=== PATIENT | female | born 1940 | race Caucasian/White ===

== ENCOUNTER 2020-05-12 20:52 | Inpatient (IN) | payer MEDICARE ==
[~2020-05-12] VITALS: Ht 165.1 cm; Wt 133.8 kg
--- NOTE | 2020-05-12 21:23 | PHYS DOC ---
Past Medical History Past Medical History: Other (Mechanical heart valve) Past Surgical History: Tubal ligation General Adult EDM: Chief Complaint: ABDOMINAL PAIN HPI: HPI: Patient is a 80-year-old female presenting for epigastric pain. Onset was first noticed this morning shortly after eating breakfast which consisted of a pastry and brownie. Nothing known makes better, p.o. intake makes worse. Patient describes pain as sharp epigastric pain that radiates to rest of her abdomen. Timing of symptoms has been constant since onset and worsening. She has never experienced pain like this before. No fever, sick contacts, recent travel, COVID-19 contact, fever, chest pain, shortness of breath, dysuria. Last bowel movement was yesterday, states she has had increased constipation and decreased passing of gas in the preceding 24 hours per baseline. She admits prior abdominal surgeries, admits open tubal ligation, no known history of small bowel obstruction or problems with abdominal adhesions. Review of Systems: Review of Systems: Fourteen body systems of review of systems have been reviewed. See HPI for pertinent positives and negative responses, other singh all other systems are negative, non-pertinent or non-contributory Heart Score: C/O Chest Pain: No HEART Score for Chest Pain: HEART Score for Chest Pain Response (Comments) Value History Slighlty/Non-Suspicious 0 ECG Normal 0 Age > 65 2 Risk Factors >3 Risk Factors or Hx CAD 2 Troponin < Normal Limit 0 Total 4 Risk Factors: Risk Factors: DM, Current or recent (<one month) smoker, HTN, HLP, family history of CAD, obesity. Risk Scores: Score 0 - 3: 2.5% MACE over next 6 weeks - Discharge Home Score 4 - 6: 20.3% MACE over next 6 weeks - Admit for Clinical Observation Score 7 - 10: 72.7% MACE over next 6 weeks - Early Invasive Strategies Physical Exam: PE: Constitutional: Well developed, well nourished, no acute distress, non-toxic appearance. HENT: Normocephalic, atraumatic, bilateral external ears normal, oropharynx moist, no oral exudates, nose normal. Eyes: PERRLA, EOMI, conjunctiva normal, no discharge. Neck: Normal range of motion, no tenderness, supple, no stridor. Cardiovascular: Heart rate regular, sinus rhythm, strong S2 Lungs & Thorax: Diminished breath sounds bilaterally due to body habitus without respiratory distress, increased work of breathing or concerning findings on auscultation Abdomen: Bowel sounds hypoactive but present in all quadrants, soft and pro tuberant, generalized tenderness with palpation most focal in epigastric region, guarding present without rebound no masses, no pulsatile masses. Nonsurgical abdomen, no peritoneal signs Skin: Warm, dry, no erythema, no rash. Back: No tenderness, no CVA tenderness. Extremities: No tenderness, no cyanosis, no clubbing, ROM intact, no edema. Neurologic: Alert and oriented X 3, grossly normal motor & sensory function, no focal deficits noted. Psychologic: Affect normal, judgement normal, mood normal. Current Patient Data: Labs: Laboratory Tests Test 05/12/20 21:45 White Blood Count 9.6 x10^3/uL Red Blood Count 4.61 x10^6/uL Hemoglobin 11.9 g/dL Hematocrit 36.4 % Mean Corpuscular Volume 79 fL Mean Corpuscular Hemoglobin 26 pg Mean Corpuscular Hemoglobin Concent 33 g/dL Red Cell Distribution Width 17.4 % Platelet Count 390 x10^3/uL Neutrophils (%) (Auto) 81 % Lymphocytes (%) (Auto) 13 % Monocytes (%) (Auto) 5 % Eosinophils (%) (Auto) 1 % Basophils (%) (Auto) 1 % Neutrophils # (Auto) 7.8 x10^3/uL Lymphocytes # (Auto) 1.2 x10^3/uL Monocytes # (Auto) 0.5 x10^3/uL Eosinophils # (Auto) 0.1 x10^3/uL Basophils # (Auto) 0.1 x10^3/uL Prothrombin Time 21.5 SEC Prothromb Time International Ratio 1.9 Activated Partial Thromboplast Time 27 SEC Sodium Level 139 mmol/L Potassium Level 4.0 mmol/L Chloride Level 99 mmol/L Carbon Dioxide Level 32 mmol/L Anion Gap 8 Blood Urea Nitrogen 15 mg/dL Creatinine 1.1 mg/dL Estimated GFR (Cockcroft-Gault) 48.0 BUN/Creatinine Ratio 14 Glucose Level 216 mg/dL Calcium Level 8.0 mg/dL Total Bilirubin 0.6 mg/dL Aspartate Amino Transf (AST/SGOT) 28 U/L Alanine Aminotransferase (ALT/SGPT) 28 U/L Alkaline Phosphatase 115 U/L Troponin I Quantitative < 0.017 ng/mL Total Protein 6.9 g/dL Albumin 3.1 g/dL Albumin/Globulin Ratio 0.8 Lipase 77 U/L Current Medications Medications (Trade) Dose Ordered Sig/David Route PRN Reason Start Time Stop Time Status Last Admin Dose Admin Morphine Sulfate (Morphine Sulfate) 4 mg 1X ONCE IV 05/12/20 22:30 05/12/20 22:31 DC 05/12/20 22:03 Ondansetron HCl (Zofran) 4 mg 1X ONCE IVP 05/12/20 22:30 05/12/20 22:31 DC 05/12/20 22:02 Iohexol (Omnipaque 300 Mg/ml) 60 ml 1X ONCE IV 05/12/20 23:00 05/12/20 23:01 DC 05/12/20 22:54 Info (CONTRAST GIVEN -- Rx MONITORING) 1 each PRN DAILY PRN MC SEE COMMENTS 05/12/20 22:30 05/14/20 22:29 Vital Signs: Vital Signs Date Time Temp Pulse Resp B/P (MAP) Pulse Ox O2 Delivery O2 Flow Rate FiO2 05/13/20 02:53 18 Room Air 05/13/20 00:30 98.4 79 18 142/51 (81) 97 Room Air 98.4 05/12/20 22:03 23 95 Room Air 05/12/20 21:55 97.9 72 18 143/58 (86) 93 Room Air 97.9 05/12/20 21:24 97.9 72 22 173/89 (117) 95 Room Air 97.9 EKG: EKG: EKG ordered and interpreted by myself at 2137 hrs. as sinus rhythm at 70 bpm, unremarkable intervals, no axis deviation, no acute ischemic findings, no STEMI Radiology/Procedures: Radiology/Procedures: EXAM: CHEST ONE VIEW. HISTORY: Chest/epigastric pain. COMPARISON: None. FINDINGS: A frontal view of the chest is obtained. There are no confluent infiltrates. There is no pneumothorax or pleural effusion. The heart is mildly enlarged. IMPRESSION: 1. Mild cardiomegaly. Electronically signed by: Ria Avila MD (05/12/2020 10:38 PM) [facility] ///////////////////////// CT ABDOMEN+PELVIS W Clinical Indication: Reason: epigastric pain, nausea and vomiting./ Comparison: None. Technique: Helical CT imaging of the abdomen and pelvis is performed after 60 cc of Omnipaque 300 IV contrast. Oral contrast not administered. Findings: Lung bases are clear. Cardiac size normal. The liver, gallbladder, spleen, pancreas, and adrenal glands are normal. Moderate atherosclerotic calcification of the abdominal aorta and iliac arteries, no aneurysm. 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 Kidneys enhance symmetrically, no hydronephrosis. There is haziness of the central mesentery, nonspecific. The stomach is unremarkable. There are several mildly dilated fluid-filled small bowel loops. The small bowel just proximal to the dilated loops is is mildly thick-walled, for example image 30 and 31. No obvious abnormality is seen at the distal point of transition, coronal image 20. The distal small bowel is decompressed. The appendix is not seen, no secondary signs of appendicitis. There is sigmoid colon diverticulosis. There is minimal free fluid in the upper pelvis. The urinary bladder is normal. Hysterectomy. There is old compression fracture treated with vertebroplasty of T12. There is grade 1 anterolisthesis of L4 on L5. IMPRESSION: 1. Several loops of mid small bowel are dilated and fluid-filled. There is mild wall thickening of small bowel proximal to the dilated loops. There is no obvious abnormality at the distal point of transition. Findings suggest enteritis and partial or developing small bowel obstruction. 2. Sigmoid colon diverticulosis. Electronically signed by: Pankaj Nair MD (05/12/2020 11:17 PM) [facility] Course & Med Decision Making: Course & Med Decision Making Hypertensive otherwise hemodynamically stable patient with history concerning for epigastric pain of suspect GI cause. Physical examination nonconcerning for any acute abdomen, no peritoneal signs Comprehensive work-up performed and concerning for enteritis versus early/partial small bowel obstruction. Given history of decreased bowel movements and flatulence, I am fearful of the latter Patient symptoms did not fully resolve with ER intervention that include IV pain medication and antiemetic use. Various plans of care discussed that included discharge with close outpatient follow-up to hospital admission. Risks and benefits of all plans of care discussed. Patient does not think she can be seen within upcoming 72 hours in outpatient setting for repeat evaluation. She is high risk and has numerous comorbidities. Joint decision to admit for continued IV fluid rehydration, pain control and serial abdominal exams Hospitalist contacted and case discussed, they agreed need for admission for continued intervention as necessary. Patient and were updated and remained amenable to hospital admission. All questions and concerns addressed prior to admission to general medical floor Critical Care Time This patient required critical care. Due to the fact that the patient required a significant amount of one on one physician - patient contact time, ordering and review of studies, arranging urgent treatment with development of a management plan, evaluation of patients response to treatment with frequent reassessments, and discussions with other providers this patient required 40 minutes of critical care time. Critical care time was indicated due to the inherent instability and/or potential for instability in this patient. The critical care time that is allocated to this patient is above and beyond any time spent on any other billable procedures performed on this patient. Mariluz Disclaimer: Mariluz Disclaimer: This electronic medical record was generated, in whole or in part, using a voice recognition dictation system. Departure Departure Impression: Primary Impression: Partial small bowel obstruction Additional Impressions: Intractable abdominal pain Subtherapeutic anticoagulation Disposition: ADMITTED INPT THIS HOSP Admitting Physician: JACOB Condition: STABLE JEFF CALLEJAS May 12, 2020 21:23
--- NOTE | 2020-05-12 21:58 | EKG ---
[facility] [address] [place] [address] Test Date: 2020-05-12 Test Time: 21:33:18 Pat Name: MAYNOR SCHMIDT Department: Room: Gender: F Rn Allergy: : 1940 Requested By: JEFF CALLEJAS Order Number: [id number] Reading MD: Measurements Intervals [place] Rate: 70 P: -41 NM: 178 QRS: 38 QRSD: 86 T: 52 QT: 418 QTc: 454 Interpretive Statements SINUS RHYTHM QRS(T) CONTOUR ABNORMALITY CONSISTENT WITH ANTEROSEPTAL INFARCT AGE UNDETERMINED ABNORMAL ECG RI6.02 No previous ECG available for comparison
[2020-05-12 21:59] LABS: BASO # 0.1 x10^3/uL (0.0-0.2); BASO % 1 % (0-3); EOS # 0.1 x10^3/uL (0.0-0.7); EOS % 1 % (0-3); HEMATOCRIT 36.4 % (36.0-47.0); HEMOGLOBIN 11.9 g/dL (12.0-15.5); LYMPH # 1.2 x10^3/uL (1.0-4.8); LYMPH % 13 % (24-48); MEAN CORPUSCULAR HEMOGLOBIN 26 pg (25-35); MEAN CORPUSCULAR HGB CONC 33 g/dL (31-37); MEAN CORPUSCULAR VOLUME 79 fL (79-100); MONO # 0.5 x10^3/uL (0.0-1.1); MONO % 5 % (0-9); NEUT # 7.8 x10^3/uL (1.8-7.7); NEUT % 81 % (31-73); PLATELET COUNT 390 x10^3/uL (140-400); RED BLOOD COUNT 4.61 x10^6/uL (3.50-5.40); RED CELL DISTRIBUTION WIDTH 17.4 % (11.5-14.5); WHITE BLOOD COUNT 9.6 x10^3/uL (4.0-11.0)
[2020-05-12 22:10] LABS: CREATININE 1.1 mg/dL (0.6-1.0); PROTHROMBIN TIME PATIENT 21.5 SEC (11.7-14.0)
[2020-05-12 22:17] LABS: ALBUMIN 3.1 g/dL (3.4-5.0); ALBUMIN/GLOBULIN RATIO 0.8 (1.0-1.7); TOTAL BILIRUBIN 0.6 mg/dL (0.2-1.0); TOTAL PROTEIN 6.9 g/dL (6.4-8.2)
[2020-05-12] MEDS ORDERED: ONDANSETRON PF 4 MG/2 ML VIAL. IVP ONE (22:30)
[2020-05-12] MEDS ORDERED: CONTRAST GIVEN. MC PRN (22:30)
[2020-05-12] MEDS ORDERED: MORPHINE SULFATE 4 MG/ML VIAL. IV ONE (22:30)
--- NOTE | 2020-05-12 22:40 | RAD ---
EXAM: CHEST ONE VIEW. HISTORY: Chest/epigastric pain. COMPARISON: None. FINDINGS: A frontal view of the chest is obtained. There are no confluent infiltrates. There is no pneumothorax or pleural effusion. The heart is mildly enlarged. IMPRESSION: 1. Mild cardiomegaly. Electronically signed by: Ria Avila MD (05/12/2020 10:38 PM) [facility]
[2020-05-12] MEDS ORDERED: IOHEXOL 300 MG/ML 100ML VIAL. IV ONE (23:00)
--- NOTE | 2020-05-12 23:19 | RAD ---
PQRS Compliance Statement: One or more of the following individualized dose reduction techniques were utilized for this examinat ion: 1. Automated exposure control 2. Adjustment of the mA and/or kV according to patient size 3. Use of iterative reconstruction technique CT ABDOMEN+PELVIS W Clinical Indication: Reason: epigastric pain, nausea and vomiting./ Comparison: None. Technique: Helical CT imaging of the abdomen and pelvis is performed after 60 cc of Omnipaque 300 IV contrast. Oral contrast not administered. Findings: Lung bases are clear. Cardiac size normal. The liver, gallbladder, spleen, pancreas, and adrenal glands are normal. Moderate atherosclerotic rob cification of the abdominal aorta and iliac arteries, no aneurysm. There is a left-sided infrarenal I VC. Kidneys enhance symmetrically, no hydronephrosis. There is haziness of the central mesentery, non specific. The stomach is unremarkable. There are several mildly dilated fluid-filled small bowel loops. The sma ll bowel just proximal to the dilated loops is is mildly thick-walled, for example image 30 and 31. N o obvious abnormality is seen at the distal point of transition, coronal image 20. The distal small b owel is decompressed. The appendix is not seen, no secondary signs of appendicitis. There is sigmoid colon diverticulosis. There is minimal free fluid in the upper pelvis. The urinary bladder is normal. Hysterectomy. There is old compression fracture treated with vertebroplasty of T12. There is grade 1 anterolisthesi s of L4 on L5. IMPRESSION: 1. Several loops of mid small bowel are dilated and fluid-filled. There is mild wall thickening of s mall bowel proximal to the dilated loops. There is no obvious abnormality at the distal point of acosta sition. Findings suggest enteritis and partial or developing small bowel obstruction. 2. Sigmoid colon diverticulosis. Electronically signed by: Pankaj Nair MD (05/12/2020 11:17 PM) [facility]
[2020-05-12] MEDS ORDERED: MORPHINE SULFATE 2 MG/ML VIAL. IV PRN (23:45)
[2020-05-13] VITALS (7 sets, daily range): BP systolic 123–150; BP diastolic 49–83
[2020-05-13] MEDS ORDERED: IV NORMAL SALINE 1000ML BAG 1,000 ML IV SCH
[2020-05-13] MEDS ORDERED: DEXTROSE 50% 25 GM / 50ML DISP.SYRIN. IV PRN (09:00)
[2020-05-13] MEDS: POTASSIUM CL 20MEQ D5-0.45NACL 1,000 ML IV SCH ×3 (09:00→23:20)
--- NOTE | 2020-05-13 09:50 | NUR ---
SW following. Discussed with RN, pt from home, room air, clear liquid diet - advance as tolerated. Per RN, pt gets around fine. RN advised no SW needs at this time. SW will continue to follow.
--- NOTE | 2020-05-13 11:10 | PDOC2 ---
GI CONSULT Date of Service: DATE: 05/13/20 TIME: 11:07 Reason For Consult: partial SBO HPI: HPI: 80 y/o female admitted through ER. Bad acid reflux x 2 weeks w/ belching, then yesterday morning after eating breakfast developed epigastric pain w/ nausea. No similar pain in the past. Last stooled ("large" and formed) on Monday. Passing gas today, taking sips of water. No sick contacts. H/o GERD - tells me she takes meclizine? and Tums. Occasional dysphagia felt in upper throat w/ solids and liquids. Occasional constipation - not concerning currently. No vomiting, diarrhea, hematochezia, melena, or weight loss. Good appetite til this illness. Not sure about previous EGD. Does report normal colonoscopy in the past (?done here - unclear when). No GB, liver, pancreas, or PUD history. Takes [place] QID PRN (mostly just BID) for arthritis pain. H/o AVR on Warfarin. PMH: PMH: CVA, CT, HTN, HLD, arthritis, UTI, depression, anxiety, DM (chart lists PE - she denies) AVR, tubal ligation, total hysterectomy, cataract removal, vertebroplasty FH: Family History: Cancer (mother - cervical) Social History: Smoke: No ALCOHOL: none Drugs: None ROS: GEN: Denies fevers, chills, sweats HEENT: Denies blurred vision, sore throat CV: Denies chest pain RESP: Denies shortness of air, cough GI: Per HPI : Denies hematuria, dysuria ENDO: Denies weight changes NEURO: Denies confusion, dizziness MSK: Denies weakness, joint pain/swelling SKIN: Denies jaundice, pruritus Vitals: Vitals: Vital Signs Date Time Temp Pulse Resp B/P (MAP) Pulse Ox O2 Delivery O2 Flow Rate FiO2 05/13/20 11:00 97.9 73 16 /52 97 Room Air 97.9 05/13/20 01:30 91.0 Labs: Labs: Laboratory Tests Test 05/12/20 21:45 White Blood Count 9.6 x10^3/uL (4.0-11.0) Red Blood Count 4.61 x10^6/uL (3.50-5.40) Hemoglobin 11.9 g/dL (12.0-15.5) Hematocrit 36.4 % (36.0-47.0) Mean Corpuscular Volume 79 fL (79-100) Mean Corpuscular Hemoglobin 26 pg (25-35) Mean Corpuscular Hemoglobin Concent 33 g/dL (31-37) Red Cell Distribution Width 17.4 % (11.5-14.5) Platelet Count 390 x10^3/uL (140-400) Neutrophils (%) (Auto) 81 % (31-73) Lymphocytes (%) (Auto) 13 % (24-48) Monocytes (%) (Auto) 5 % (0-9) Eosinophils (%) (Auto) 1 % (0-3) Basophils (%) (Auto) 1 % (0-3) Neutrophils # (Auto) 7.8 x10^3/uL (1.8-7.7) Lymphocytes # (Auto) 1.2 x10^3/uL (1.0-4.8) Monocytes # (Auto) 0.5 x10^3/uL (0.0-1.1) Eosinophils # (Auto) 0.1 x10^3/uL (0.0-0.7) Basophils # (Auto) 0.1 x10^3/uL (0.0-0.2) Prothrombin Time 21.5 SEC (11.7-14.0) Prothromb Time International Ratio 1.9 (0.8-1.1) Activated Partial Thromboplast Time 27 SEC (24-38) Sodium Level 139 mmol/L (136-145) Potassium Level 4.0 mmol/L (3.5-5.1) Chloride Level 99 mmol/L (98-107) Carbon Dioxide Level 32 mmol/L (21-32) Anion Gap 8 (6-14) Blood Urea Nitrogen 15 mg/dL (7-20) Creatinine 1.1 mg/dL (0.6-1.0) Estimated GFR (Cockcroft-Gault) 48.0 BUN/Creatinine Ratio 14 (6-20) Glucose Level 216 mg/dL (70-99) Calcium Level 8.0 mg/dL (8.5-10.1) Total Bilirubin 0.6 mg/dL (0.2-1.0) Aspartate Amino Transf (AST/SGOT) 28 U/L (15-37) Alanine Aminotransferase (ALT/SGPT) 28 U/L (14-59) Alkaline Phosphatase 115 U/L (46-116) Troponin I Quantitative < 0.017 ng/mL (0.000-0.055) Total Protein 6.9 g/dL (6.4-8.2) Albumin 3.1 g/dL (3.4-5.0) Albumin/Globulin Ratio 0.8 (1.0-1.7) Lipase 77 U/L (73-393) Allergies: Coded Allergies: erythromycin base (Verified Allergy, Severe, Rash, 05/12/20) lisinopril (Verified Allergy, Severe, Anaphylaxis, 05/12/20) Medications: Current Medications Medications (Trade) Dose Ordered Sig/David Route PRN Reason Start Time Stop Time Status Last Admin Dose Admin Morphine Sulfate (Morphine Sulfate) 4 mg 1X ONCE IV 05/12/20 22:30 05/12/20 22:31 DC 05/12/20 22:03 Ondansetron HCl (Zofran) 4 mg 1X ONCE IVP 05/12/20 22:30 05/12/20 22:31 DC 05/12/20 22:02 Iohexol (Omnipaque 300 Mg/ml) 60 ml 1X ONCE IV 05/12/20 23:00 05/12/20 23:01 DC 05/12/20 22:54 Morphine Sulfate (Morphine Sulfate) 2 mg PRN Q2HR PRN IV SEVERE PAIN 7-10 05/12/20 23:45 05/13/20 23:44 05/13/20 02:53 Sodium Chloride 1,000 ml @ 150 mls/hr Q6H40M IV 05/13/20 00:00 05/13/20 00:01 DC 05/13/20 02:49 Potassium Chloride/Dextrose/ Sod Cl 1,000 ml @ 100 mls/hr Q10H IV 05/13/20 09:00 05/13/20 09:00 Imaging: Imaging: CT A/P IMPRESSION: 1. Several loops of mid small bowel are dilated and fluid-filled. There is mild wall thickening of small bowel proximal to the dilated loops. There is no obvious abnormality at the distal point of transition. Findings suggest ent eritis and partial or developing small bowel obstruction. 2. Sigmoid colon diverticulosis. CXR IMPRESSION: 1. Mild cardiomegaly. PE: GEN: NAD HEENT: Atraumatic, PERRL LUNGS: CTAB HEART: RRR ABD: obese, BS+, epigastric tenderness EXTREMITY: trace BLE edema SKIN: No rashes, no jaundice NEURO/PSYCH: A & O 3 A/P: A/P: Epigastric pain, nausea Anemia Abnormal CT - enteritis and partial/developing SBO GERD - history of, symptoms worse x 2 weeks Occasional dysphagia CRC screen - reports normal colonoscopy in past Occasional constipation Chronic pain on [place] S/p AVR on Warfarin -- Previously d/w Propeck - checking interval KUB and will ask for surgery to follow. 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 SEBAS VILLAFUERTE May 13, 2020 11:10
--- NOTE | 2020-05-13 11:44 | PDOC1 ---
History and Physical Date of Admission Date of Admission DATE: 05/13/20 TIME: 11:43 Source Source: Chart review, Patient History of Present Illness History of Present Illness Ms. Grant, is a 80-year-old female admit from ER for severe epigastric pain. sudden pain after eating breakfast yesteday, still having pain, no stool no vomiting, pain 8/10 and intermittent, colicky. I noticed grossly audible gastric sounds while talking to her. Patient describes pain as sharp epigastric pain that radiates to rest of her abdomen. No fever, sick contacts, recent travel, COVID-19 contact, fever, chest pain, shortness of breath, dysuria. Last bowel movement was yesterday, states she has had increased constipation and decreased passing of gas in the preceding 24 hours per baseline. She admits prior abdominal surgeries, admits open tubal ligation, no known history of small bowel obstruction or problems with abdominal adhesion she is oriented 4/4, but cannot recall her home meds, PCP is Dr. Montejo, Past Medical History Cardiovascular: HTN GI: No pertinent hx Heme/Onc: No pertinent hx Renal/: No pertinent hx Family History Family History: Heart Disease Social History Smoke: No ALCOHOL: none Drugs: None Current Problem List Problem List Problems Medical Problems: (1) Intractable abdominal pain Status: Acute (2) Partial small bowel obstruction Status: Acute (3) Subtherapeutic anticoagulation Status: Acute Current Medications Current Medications Current Medications Morphine Sulfate (Morphine Sulfate) 4 mg 1X ONCE IV Last administered on 05/12/20at 22:03; Start 05/12/20 at 22:30; Stop 05/12/20 at 22:31; Status DC Ondansetron HCl (Zofran) 4 mg 1X ONCE IVP Last administered on 05/12/20at 22:02; Start 05/12/20 at 22:30; Stop 05/12/20 at 22:31; Status DC Iohexol (Omnipaque 300 Mg/ml) 60 ml 1X ONCE IV Last administered on 05/12/20at 22:54; Start 05/12/20 at 23:00; Stop 05/12/20 at 23:01; Status DC Info (CONTRAST GIVEN -- Rx MONITORING) 1 each PRN DAILY PRN MC SEE COMMENTS; Start 05/12/20 at 22:30; Stop 05/14/20 at 22:29 Morphine Sulfate (Morphine Sulfate) 2 mg PRN Q2HR PRN IV SEVERE PAIN 7-10 Last administered on 05/13/20at 02:53; Start 05/12/20 at 23:45; Stop 05/13/20 at 23:44 Sodium Chloride 1,000 ml @ 150 mls/hr Q6H40M IV Last administered on 05/13/20at 02:49; Start 05/13/20 at 00:00; Stop 05/13/20 at 00:01; Status DC Potassium Chloride/Dextrose/ Sod Cl 1,000 ml @ 100 mls/hr Q10H IV Last administered on 05/13/20at 09:00; Start 05/13/20 at 09:00 Insulin Human Lispro (HumaLOG) 0-9 UNITS TIDWMEALS SQ ; Start 05/13/20 at 12:00 Dextrose (Dextrose 50%-Water Syringe) 12.5 gm PRN Q15MIN PRN IV SEE COMMENTS; Start 05/13/20 at 09:00 Pantoprazole Sodium (PROTONIX VIAL for IV PUSH) 40 mg DAILYAC IVP ; Start 05/13/20 at 11:45; Status UNV Allergies Allergies: Coded Allergies: erythromycin base (Verified Allergy, Severe, Rash, 05/12/20) lisinopril (Verified Allergy, Severe, Anaphylaxis, 05/12/20) ROS General: YES: Fatigue; No: Chills, Night Sweats, Malaise, Appetite, Other PSYCHOLOGICAL ROS: No: Anxiety, Behavioral Disorder, Concentration difficultie, Decreased libido, Depression, Disorientation, Hallucinations, Hostility, Irritablity, Memory difficulties, Mood Swings, Obsessive thoughts, Physical abuse, Sexual abuse, Sleep disturbances, Suicidal ideation, Other Eyes: No Blurry vision, No Decreased vision, No Double vision, No Dry eyes, No Excessive tearing, No Eye Pain, No Itchy Eyes, No Loss of vision, No Photophobia, No Scotomata, No Uses contacts, No Uses glasses, No Other Cardiovascular: No Chest Pain, No Palpitations, No Orthopnea, No Paroxysmal No c. Dyspnea, No Edema, No Lt Headedness, No Other Gastrointestinal: Yes Nausea, Yes Abdominal Pain; No Vomiting, No Diarrhea, No Constipation, No Melena, No Hematochezia, No Other Genitourinary: No Dysuria, No Frequency, No Incontinence, No Hematuria, No Retention, No Discharge, No Urgency, No Pain, No Flank Pain, No Other, No , No , No , No , No , No , No Musculoskeletal: No Gait Disturbance, No Joint Pain, No Joint Stiffness, No Joint Swelling, No Muscle Pain, No Muscular Weakness, No Pain In:, No Swelling In:, No Other Neurological: No Behavorial Changes, No Bowel/Bladder ControlChng, No Confusion, No Dizziness, No Gait Disturbance, No Headaches, No Impaired Coord/balance, No Memory Loss, No Numbness/Tingling, No Seizures, No Speech Problems, No Tremors, No Visual Changes, No Weakness, No Other Skin: Yes Dry Skin; No Eczema, No Hair Changes, No Lumps, No Mole Changes, No Mottling, No Nail Changes, No Pruritus, No Rash, No Skin Lesion Changes, No Other, No Acne Physical Exam General: Alert, Oriented X3, Cooperative, moderate distress HEENT: Atraumatic, PERRLA Lungs: Clear to auscultation Heart: S1S2, RRR, no thrills Extremities: No clubbing, No edema, Normal pulses Skin: No rashes, No significant lesion Neuro: Normal speech, Normal tone, Sensation intact Psych/Mental Status: Mental status NL, Mood NL Vitals Vitals Vital Signs Date Time Temp Pulse Resp B/P (MAP) Pulse Ox O2 Delivery O2 Flow Rate FiO2 05/13/20 11:00 97.9 73 16 124/52 (76) 97 Room Air 97.9 05/13/20 01:30 91.0 Labs Labs Laboratory Tests Test 05/12/20 21:45 White Blood Count 9.6 x10^3/uL (4.0-11.0) Red Blood Count 4.61 x10^6/uL (3.50-5.40) Hemoglobin 11.9 g/dL (12.0-15.5) Hematocrit 36.4 % (36.0-47.0) Mean Corpuscular Volume 79 fL (79-100) Mean Corpuscular Hemoglobin 26 pg (25-35) Mean Corpuscular Hemoglobin Concent 33 g/dL (31-37) Red Cell Distribution Width 17.4 % (11.5-14.5) Platelet Count 390 x10^3/uL (140-400) Neutrophils (%) (Auto) 81 % (31-73) Lymphocytes (%) (Auto) 13 % (24-48) Monocytes (%) (Auto) 5 % (0-9) Eosinophils (%) (Auto) 1 % (0-3) Basophils (%) (Auto) 1 % (0-3) Neutrophils # (Auto) 7.8 x10^3/uL (1.8-7.7) Lymphocytes # (Auto) 1.2 x10^3/uL (1.0-4.8) Monocytes # (Auto) 0.5 x10^3/uL (0.0-1.1) Eosinophils # (Auto) 0.1 x10^3/uL (0.0-0.7) Basophils # (Auto) 0.1 x10^3/uL (0.0-0.2) Prothrombin Time 21.5 SEC (11.7-14.0) Prothromb Time International Ratio 1.9 (0.8-1.1) Activated Partial Thromboplast Time 27 SEC (24-38) Sodium Level 139 mmol/L (136-145) Potassium Level 4.0 mmol/L (3.5-5.1) Chloride Level 99 mmol/L (98-107) Carbon Dioxide Level 32 mmol/L (21-32) Anion Gap 8 (6-14) Blood Urea Nitrogen 15 mg/dL (7-20) Creatinine 1.1 mg/dL (0.6-1.0) Estimated GFR (Cockcroft-Gault) 48.0 BUN/Creatinine Ratio 14 (6-20) Glucose Level 216 mg/dL (70-99) Calcium Level 8.0 mg/dL (8.5-10.1) Total Bilirubin 0.6 mg/dL (0.2-1.0) Aspartate Amino Transf (AST/SGOT) 28 U/L (15-37) Alanine Aminotransferase (ALT/SGPT) 28 U/L (14-59) Alkaline Phosphatase 115 U/L (46-116) Troponin I Quantitative < 0.017 ng/mL (0.000-0.055) Total Protein 6.9 g/dL (6.4-8.2) Albumin 3.1 g/dL (3.4-5.0) Albumin/Globulin Ratio 0.8 (1.0-1.7) Lipase 77 U/L (73-393) Laboratory Tests Test 05/12/20 21:45 White Blood Count 9.6 x10^3/uL (4.0-11.0) Red Blood Count 4.61 x10^6/uL (3.50-5.40) Hemoglobin 11.9 g/dL (12.0-15.5) Hematocrit 36.4 % (36.0-47.0) Mean Corpuscular Volume 79 fL (79-100) Mean Corpuscular Hemoglobin 26 pg (25-35) Mean Corpuscular Hemoglobin Concent 33 g/dL (31-37) Red Cell Distribution Width 17.4 % (11.5-14.5) Platelet Count 390 x10^3/uL (140-400) Neutrophils (%) (Auto) 81 % (31-73) Lymphocytes (%) (Auto) 13 % (24-48) Monocytes (%) (Auto) 5 % (0-9) Eosinophils (%) (Auto) 1 % (0-3) Basophils (%) (Auto) 1 % (0-3) Neutrophils # (Auto) 7.8 x10^3/uL (1.8-7.7) Lymphocytes # (Auto) 1.2 x10^3/uL (1.0-4.8) Monocytes # (Auto) 0.5 x10^3/uL (0.0-1.1) Eosinophils # (Auto) 0.1 x10^3/uL (0.0-0.7) Basophils # (Auto) 0.1 x10^3/uL (0.0-0.2) Prothrombin Time 21.5 SEC (11.7-14.0) Prothromb Time International Ratio 1.9 (0.8-1.1) Activated Partial Thromboplast Time 27 SEC (24-38) Sodium Level 139 mmol/L (136-145) Potassium Level 4.0 mmol/L (3.5-5.1) Chloride Level 99 mmol/L (98-107) Carbon Dioxide Level 32 mmol/L (21-32) Anion Gap 8 (6-14) Blood Urea Nitrogen 15 mg/dL (7-20) Creatinine 1.1 mg/dL (0.6-1.0) Estimated GFR (Cockcroft-Gault) 48.0 BUN/Creatinine Ratio 14 (6-20) Glucose Level 216 mg/dL (70-99) Calcium Level 8.0 mg/dL (8.5-10.1) Total Bilirubin 0.6 mg/dL (0.2-1.0) Aspartate Amino Transf (AST/SGOT) 28 U/L (15-37) Alanine Aminotransferase (ALT/SGPT) 28 U/L (14-59) Alkaline Phosphatase 115 U/L (46-116) Troponin I Quantitative < 0.017 ng/mL (0.000-0.055) Total Protein 6.9 g/dL (6.4-8.2) Albumin 3.1 g/dL (3.4-5.0) Albumin/Globulin Ratio 0.8 (1.0-1.7) Lipase 77 U/L (73-393) VTE Prophylaxis Ordered VTE Prophylaxis Devices: Yes VTE Pharmacological Prophylaxi: No Assessment/Plan Assessment/Plan acute abdominal pain nausea partial SBO plan IV fluid, bowel rest, consult GI obese, BMI 49 dental caries Justifications for Admission Other Justification LUPILLO CEE MD May 13, 2020 11:44
[2020-05-13] MEDS: INSULIN LISPRO 300 UNITS/3 ML VIAL. SQ SCH ×2 (12:00→17:00)
[2020-05-13] MEDS: PANTOPRAZOLE IV PUSH 40 MG VIAL. IVP SCH (12:01)
[2020-05-13] MEDS ORDERED: AMLO-186 PO (14:33)
[2020-05-13] MEDS ORDERED: DOCU100C28 PO (14:33)
[2020-05-13] MEDS ORDERED: CITA20TA6 PO (14:33)
[2020-05-13] MEDS ORDERED: ATOR40TA59 PO (14:33)
[2020-05-13] MEDS ORDERED: HYDR-2761 PO (14:33)
[2020-05-13] MEDS ORDERED: ASPI-630 PO (14:33)
[2020-05-13] MEDS ORDERED: HYDR25TA10 PO (14:33)
[2020-05-13] MEDS ORDERED: PANT40TA77 PO (14:33)
[2020-05-13] MEDS ORDERED: LOSA25TA54 PO (14:33)
[2020-05-13] MEDS ORDERED: WARF7.5T45 PO (14:33)
[2020-05-13] MEDS ORDERED: METO25TA4 PO (14:33)
--- NOTE | 2020-05-13 15:12 | RAD ---
Single view abdomen. INDICATION: Abdominal pain COMPARISON: Abdomen and pelvis CT of 05/12/2020 without IV contrast FINDINGS: Multiple gas-filled small bowel bowel loops are present. This is similar to prior. No free air. No pn eumatosis. No evidence of portal venous gas. Bones show vertebroplasty cement at T12 which has hypopl astic ribs. Sternal cerclage wires incidentally noted. Visualized lung bases are unremarkable. The lo wer abdomen shows contrast material in the urinary bladder. IMPRESSION: Persistent gaseous distention of small bowel loops in a pattern compatible with small bowel obstructi on. Electronically signed by: Chelsie Chowdary MD (05/13/2020 3:10 PM) [id number]
[2020-05-13] MEDS ORDERED: WARFARIN 7.5 MG TABLET. PO ONE (16:00)
--- NOTE | 2020-05-13 16:26 | PDOC2 ---
CONSULT Date of Consult Date of Consult DATE: 05/13/20 TIME: 16:21 Reason for Consult Reason for Consult: SBO, enteritis Referring Physician Referring Physician: Dr. Rae Identification/Chief Complaint Chief Complaint abd pain Source Source: Chart review, Patient History of Present Illness Reason for Visit: 80 yo F with c/o reflux and nausea with epigastric abd pain, no emesis. No previous episodes. Some improvement since admission, passing some flatus Past Medical History Cardiovascular: CAD, HTN CENTRAL NERVOUS SYSTEM: CVA GI: No pertinent hx Heme/Onc: No pertinent hx Psych: Anxiety, Depression Renal/: No pertinent hx Past Surgical History Past Surgical History: Hysterectomy (, back surgery, valve replacement) Family History Family History: No Significant, Heart Disease Social History No ALCOHOL: none Drugs: None Current Problem List Problem List Problems Medical Problems: (1) Intractable abdominal pain Status: Acute (2) Partial small bowel obstruction Status: Acute (3) Subtherapeutic anticoagulation Status: Acute Current Medications Current Medications Current Medications Morphine Sulfate (Morphine Sulfate) 4 mg 1X ONCE IV Last administered on 04/15 at 22:03; Start 05/12/20 at 22:30; Stop 05/12/20 at 22:31; Status DC Ondansetron HCl (Zofran) 4 mg 1X ONCE IVP Last administered on 05/12/20at 22:02; Start 05/12/20 at 22:30; Stop 05/12/20 at 22:31; Status DC Iohexol (Omnipaque 300 Mg/ml) 60 ml 1X ONCE IV Last administered on 05/12/20at 22:54; Start 05/12/20 at 23:00; Stop 05/12/20 at 23:01; Status DC Info (CONTRAST GIVEN -- Rx MONITORING) 1 each PRN DAILY PRN MC SEE COMMENTS; Start 05/12/20 at 22:30; Stop 05/14/20 at 22:29 Morphine Sulfate (Morphine Sulfate) 2 mg PRN Q2HR PRN IV SEVERE PAIN 7-10 Last administered on 05/13/20at 02:53; Start 05/12/20 at 23:45; Stop 05/13/20 at 23:44 Sodium Chloride 1,000 ml @ 150 mls/hr Q6H40M IV Last administered on 05/13/20at 02:49; Start 05/13/20 at 00:00; Stop 05/13/20 at 00:01; Status DC Potassium Chloride/Dextrose/ Sod Cl 1,000 ml @ 100 mls/hr Q10H IV Last administered on 05/13/20at 09:00; Start 05/13/20 at 09:00 Insulin Human Lispro (HumaLOG) 0-9 UNITS TIDWMEALS SQ ; Start 05/13/20 at 12:00 Dextrose (Dextrose 50%-Water Syringe) 12.5 gm PRN Q15MIN PRN IV SEE COMMENTS; Start 05/13/20 at 09:00 Pantoprazole Sodium (PROTONIX VIAL for IV PUSH) 40 mg DAILYAC IVP Last administered on 05/13/20at 12:01; Start 05/13/20 at 11:45 Warfarin Sodium (Coumadin Per Pharmacy) 1 each PRN DAILY PRN MC SEE COMMENTS Last administered on 05/13/20at 16:11; Start 05/13/20 at 15:00 Aspirin (Aspirin Chewable) 81 mg DAILY PO ; Start 05/14/20 at 09:00 Atorvastatin Calcium (Lipitor) 40 mg QHS PO ; Start 05/13/20 at 21:00 Citalopram Hydrobromide (CeleXA) 20 mg DAILY PO ; Start 05/14/20 at 09:00 Docusate Sodium (Colace) 100 mg BID PO ; Start 05/13/20 at 21:00 Acetaminophen/ Hydrocodone Bitart (Lortab 5/325) 1 tab PRN Q6HRS PRN PO PAIN; Start 05/13/20 at 15:00 Metoprolol Tartrate (Lopressor) 25 mg BID PO ; Start 05/13/20 at 21:00 Warfarin Sodium (Coumadin) 7.5 mg 1X WARF ONCE PO Last administered on 05/13/20at 16:08; Start 05/13/20 at 16:00; Stop 05/13/20 at 16:03; Status DC Active Scripts Active Reported Hydrocodone-Apap 5-325 (Hydrocodone Bit/Acetaminophen) 1 Tab Tablet 1 Tab PO PRN Q6HRS PRN Warfarin Sodium 7.5 Mg Tablet 7.5 Mg PO DAILY Citalopram Hbr (Citalopram Hydrobromide) 20 Mg Tablet 1 Tab PO DAILY Amlodipine Besylate 5 Mg Tablet 5 Mg PO DAILY Docusate Sodium 100 Mg Capsule 1 Cap PO BID 7 Days Pantoprazole Sodium (Pantoprazole Sodium) 40 Mg Tablet.dr 40 Mg PO DAILYAC Aspirin 81 Mg Tab.chew 1 Tab PO DAILY Losartan Potassium (Losartan Potassium) 25 Mg Tablet 25 Mg PO BID Hydrochlorothiazide 25 Mg Tablet 25 Mg PO DAILY Atorvastatin Calcium 40 Mg Tablet 1 Tab PO QHS Metoprolol Tartrate 25 Mg Tablet 1 Tab PO BID Allergies Allergies: Coded Allergies: erythromycin base (Verified Allergy, Severe, Rash, 05/12/20) lisinopril (Verified Allergy, Severe, Anaphylaxis, 05/12/20) ROS Gastrointestinal: Yes Nausea, Yes Abdominal Pain, Yes Other (reflux) Physical Exam General: Alert, Oriented X3, Cooperative, mild distress HEENT: Atraumatic Lungs: Normal air movement Abdomen: Soft, Other (obese, mild TTP) Extremities: No clubbing, No cyanosis Skin: No rashes, No breakdown Neuro: Normal speech, Sensation intact Psych/Mental Status: Mental status NL, Mood NL Vitals VITALS Vital Signs Date Time Temp Pulse Resp B/P (MAP) Pulse Ox O2 Delivery O2 Flow Rate FiO2 05/13/20 15:00 97.9 71 16 150/83 (105) 89 Room Air 97.9 05/13/20 01:30 91.0 Labs Labs Laboratory Tests Test 05/12/20 21:45 05/13/20 13:25 White Blood Count 9.6 x10^3/uL (4.0-11.0) Red Blood Count 4.61 x10^6/uL (3.50-5.40) Hemoglobin 11.9 g/dL (12.0-15.5) Hematocrit 36.4 % (36.0-47.0) Mean Corpuscular Volume 79 fL (79-100) Mean Corpuscular Hemoglobin 26 pg (25-35) Mean Corpuscular Hemoglobin Concent 33 g/dL (31-37) Red Cell Distribution Width 17.4 % (11.5-14.5) Platelet Count 390 x10^3/uL (140-400) Neutrophils (%) (Auto) 81 % (31-73) Lymphocytes (%) (Auto) 13 % (24-48) Monocytes (%) (Auto) 5 % (0-9) Eosinophils (%) (Auto) 1 % (0-3) Basophils (%) (Auto) 1 % (0-3) Neutrophils # (Auto) 7.8 x10^3/uL (1.8-7.7) Lymphocytes # (Auto) 1.2 x10^3/uL (1.0-4.8) Monocytes # (Auto) 0.5 x10^3/uL (0.0-1.1) Eosinophils # (Auto) 0.1 x10^3/uL (0.0-0.7) Basophils # (Auto) 0.1 x10^3/uL (0.0-0.2) Prothrombin Time 21.5 SEC (11.7-14.0) Prothromb Time International Ratio 1.9 (0.8-1.1) Activated Partial Thromboplast Time 27 SEC (24-38) Sodium Level 139 mmol/L (136-145) Potassium Level 4.0 mmol/L (3.5-5.1) Chloride Level 99 mmol/L (98-107) Carbon Dioxide Level 32 mmol/L (21-32) Anion Gap 8 (6-14) Blood Urea Nitrogen 15 mg/dL (7-20) Creatinine 1.1 mg/dL (0.6-1.0) Estimated GFR (Cockcroft-Gault) 48.0 BUN/Creatinine Ratio 14 (6-20) Glucose Level 216 mg/dL (70-99) Calcium Level 8.0 mg/dL (8.5-10.1) Total Bilirubin 0.6 mg/dL (0.2-1.0) Aspartate Amino Transf (AST/SGOT) 28 U/L (15-37) Alanine Aminotransferase (ALT/SGPT) 28 U/L (14-59) Alkaline Phosphatase 115 U/L (46-116) Troponin I Quantitative < 0.017 ng/mL (0.000-0.055) Total Protein 6.9 g/dL (6.4-8.2) Albumin 3.1 g/dL (3.4-5.0) Albumin/Globulin Ratio 0.8 (1.0-1.7) Lipase 77 U/L (73-393) Glucose (Fingerstick) 173 mg/dL (70-99) Laboratory Tests Test 05/12/20 21:45 05/13/20 13:25 White Blood Count 9.6 x10^3/uL (4.0-11.0) Red Blood Count 4.61 x10^6/uL (3.50-5.40) Hemoglobin 11.9 g/dL (12.0-15.5) Hematocrit 36.4 % (36.0-47.0) Mean Corpuscular Volume 79 fL (79-100) Mean Corpuscular Hemoglobin 26 pg (25-35) Mean Corpuscular Hemoglobin Concent 33 g/dL (31-37) Red Cell Distribution Width 17.4 % (11.5-14.5) Platelet Count 390 x10^3/uL (140-400) Neutrophils (%) (Auto) 81 % (31-73) Lymphocytes (%) (Auto) 13 % (24-48) Monocytes (%) (Auto) 5 % (0-9) Eosinophils (%) (Auto) 1 % (0-3) Basophils (%) (Auto) 1 % (0-3) Neutrophils # (Auto) 7.8 x10^3/uL (1.8-7.7) Lymphocytes # (Auto) 1.2 x10^3/uL (1.0-4.8) Monocytes # (Auto) 0.5 x10^3/uL (0.0-1.1) Eosinophils # (Auto) 0.1 x10^3/uL (0.0-0.7) Basophils # (Auto) 0.1 x10^3/uL (0.0-0.2) Prothrombin Time 21.5 SEC (11.7-14.0) Prothromb Time International Ratio 1.9 (0.8-1.1) Activated Partial Thromboplast Time 27 SEC (24-38) Sodium Level 139 mmol/L (136-145) Potassium Level 4.0 mmol/L (3.5-5.1) Chloride Level 99 mmol/L (98-107) Carbon Dioxide Level 32 mmol/L (21-32) Anion Gap 8 (6-14) Blood Urea Nitrogen 15 mg/dL (7-20) Creatinine 1.1 mg/dL (0.6-1.0) Estimated GFR (Cockcroft-Gault) 48.0 BUN/Creatinine Ratio 14 (6-20) Glucose Level 216 mg/dL (70-99) Calcium Level 8.0 mg/dL (8.5-10.1) Total Bilirubin 0.6 mg/dL (0.2-1.0) Aspartate Amino Transf (AST/SGOT) 28 U/L (15-37) Alanine Aminotransferase (ALT/SGPT) 28 U/L (14-59) Alkaline Phosphatase 115 U/L (46-116) Troponin I Quantitative < 0.017 ng/mL (0.000-0.055) Total Protein 6.9 g/dL (6.4-8.2) Albumin 3.1 g/dL (3.4-5.0) Albumin/Globulin Ratio 0.8 (1.0-1.7) Lipase 77 U/L (73-393) Glucose (Fingerstick) 173 mg/dL (70-99) Images Images CT c/w enteritis KUB with SBO Assessment/Plan Assessment/Plan SBO, enteritis continue bowel rest will recheck KUB in AM, consider SBFT if not improved pt is morbidly obese, making surgery difficult Thanks for consult! MARILU ALBRIGHT MD May 13, 2020 16:26
[2020-05-13] MEDS: DOCUSATE SODIUM 100 MG CAPSULE. PO SCH (21:00)
[2020-05-13] MEDS: HYDROcodone/APAP 5/325MG 1 TAB TABLET PO PRN (21:07)
[2020-05-13] MEDS: ATORVASTATIN CALCIUM 40 MG TABLET. PO SCH (21:07)
[2020-05-13] MEDS: METOPROLOL TART IMMED RELEASE 25 MG TABLET. PO SCH (21:08)
[2020-05-13] MEDS: ONDANSETRON PF 4 MG/2 ML VIAL. IVP PRN (23:19)
[2020-05-14 03:00] VITALS: BP 123/51
[2020-05-14] MEDS: HYDROcodone/APAP 5/325MG 1 TAB TABLET PO PRN ×2 (03:06→19:49)
[2020-05-14 04:43] LABS: HEMATOCRIT 36.3 % (36.0-47.0); HEMOGLOBIN 11.7 g/dL (12.0-15.5); RED BLOOD COUNT 4.56 x10^6/uL (3.50-5.40); RED CELL DISTRIBUTION WIDTH 17.4 % (11.5-14.5); WHITE BLOOD COUNT 11.6 x10^3/uL (4.0-11.0)
[2020-05-14 04:49] LABS: PROTHROMBIN TIME PATIENT 25.5 SEC (11.7-14.0)
[2020-05-14 04:59] LABS: CALCIUM 7.4 mg/dL (8.5-10.1); GFR 53.6; POTASSIUM 3.9 mmol/L (3.5-5.1)
[2020-05-14] MEDS: POTASSIUM CL 20MEQ D5-0.45NACL 1,000 ML IV SCH ×2 (05:51→15:36)
[2020-05-14 07:00] VITALS: BP 129/54
[2020-05-14] MEDS: INSULIN LISPRO 300 UNITS/3 ML VIAL. SQ SCH ×3 (08:00→16:50)
[2020-05-14] MEDS: DOCUSATE SODIUM 100 MG CAPSULE. PO SCH ×2 (09:00→21:00)
--- NOTE | 2020-05-14 09:20 | PDOC ---
PAMELA QUINONEZ TEAM LEADER/RESEARCH PSYCHOLOGIST 05/14/20 0920: SURGICAL PROGRESS NOTE DATE: 05/14/20 TIME: 09:19 Subjective sore at times in abdomen + flatus did have episode of vomiting overnight belching Vital Signs Vital Signs Date Time Temp Pulse Resp B/P (MAP) Pulse Ox O2 Delivery O2 Flow Rate FiO2 05/14/20 07:00 98.7 77 16 129/54 (79) 94 Room Air 98.7 05/13/20 22:07 91.0 I&O Intake and Output 05/14/20 06:59 Intake Total 0 ml Balance 0 ml Intake Oral 0 ml # Voids 3 General: Alert, Oriented X3, Cooperative Abdomen: Soft, Other (ND) Labs Laboratory Tests Test 05/12/20 21:45 05/13/20 13:25 05/13/20 16:58 05/13/20 23:34 White Blood Count 9.6 x10^3/uL (4.0-11.0) Red Blood Count 4.61 x10^6/uL (3.50-5.40) Hemoglobin 11.9 g/dL (12.0-15.5) Hematocrit 36.4 % (36.0-47.0) Mean Corpuscular Volume 79 fL (79-100) Mean Corpuscular Hemoglobin 26 pg (25-35) Mean Corpuscular Hemoglobin Concent 33 g/dL (31-37) Red Cell Distribution Width 17.4 % (11.5-14.5) Platelet Count 390 x10^3/uL (140-400) Neutrophils (%) (Auto) 81 % (31-73) Lymphocytes (%) (Auto) 13 % (24-48) Monocytes (%) (Auto) 5 % (0-9) Eosinophils (%) (Auto) 1 % (0-3) Basophils (%) (Auto) 1 % (0-3) Neutrophils # (Auto) 7.8 x10^3/uL (1.8-7.7) Lymphocytes # (Auto) 1.2 x10^3/uL (1.0-4.8) Monocytes # (Auto) 0.5 x10^3/uL (0.0-1.1) Eosinophils # (Auto) 0.1 x10^3/uL (0.0-0.7) Basophils # (Auto) 0.1 x10^3/uL (0.0-0.2) Prothrombin Time 21.5 SEC (11.7-14.0) Prothromb Time International Ratio 1.9 (0.8-1.1) Activated Partial Thromboplast Time 27 SEC (24-38) Sodium Level 139 mmol/L (136-145) Potassium Level 4.0 mmol/L (3.5-5.1) Chloride Level 99 mmol/L (98-107) Carbon Dioxide Level 32 mmol/L (21-32) Anion Gap 8 (6-14) Blood Urea Nitrogen 15 mg/dL (7-20) Creatinine 1.1 mg/dL (0.6-1.0) Estimated GFR (Cockcroft-Gault) 48.0 BUN/Creatinine Ratio 14 (6-20) Glucose Level 216 mg/dL (70-99) Calcium Level 8.0 mg/dL (8.5-10.1) Total Bilirubin 0.6 mg/dL (0.2-1.0) Aspartate Amino Transf (AST/SGOT) 28 U/L (15-37) Alanine Aminotransferase (ALT/SGPT) 28 U/L (14-59) Alkaline Phosphatase 115 U/L (46-116) Troponin I Quantitative < 0.017 ng/mL (0.000-0.055) Total Protein 6.9 g/dL (6.4-8.2) Albumin 3.1 g/dL (3.4-5.0) Albumin/Globulin Ratio 0.8 (1.0-1.7) Lipase 77 U/L (73-393) Glucose (Fingerstick) 173 mg/dL (70-99) 171 mg/dL (70-99) 160 mg/dL (70-99) Test 05/14/20 03:48 05/14/20 07:40 White Blood Count 11.6 x10^3/uL (4.0-11.0) Red Blood Count 4.56 x10^6/uL (3.50-5.40) Hemoglobin 11.7 g/dL (12.0-15.5) Hematocrit 36.3 % (36.0-47.0) Mean Corpuscular Volume 80 fL (79-100) Mean Corpuscular Hemoglobin 26 pg (25-35) Mean Corpuscular Hemoglobin Concent 32 g/dL (31-37) Red Cell Distribution Width 17.4 % (11.5-14.5) Platelet Count 406 x10^3/uL (140-400) Prothrombin Time 25.5 SEC (11.7-14.0) Prothromb Time International Ratio 2.3 (0.8-1.1) Sodium Level 139 mmol/L (136-145) Potassium Level 3.9 mmol/L (3.5-5.1) Chloride Level 101 mmol/L (98-107) Carbon Dioxide Level 34 mmol/L (21-32) Anion Gap 4 (6-14) Blood Urea Nitrogen 13 mg/dL (7-20) Creatinine 1.0 mg/dL (0.6-1.0) Estimated GFR (Cockcroft-Gault) 53.6 Glucose Level 133 mg/dL (70-99) Calcium Level 7.4 mg/dL (8.5-10.1) Iron Level 27 ug/dL (50-170) Total Iron Binding Capacity 272 ug/dL (250-450) Iron Saturation 10 % (15-34) Vitamin B12 Level 228 pg/mL (247-911) Glucose (Fingerstick) 115 mg/dL (70-99) Laboratory Tests Test 05/13/20 13:25 05/13/20 16:58 05/13/20 23:34 05/14/20 03:48 Glucose (Fingerstick) 173 mg/dL (70-99) 171 mg/dL (70-99) 160 mg/dL (70-99) White Blood Count 11.6 x10^3/uL (4.0-11.0) Red Blood Count 4.56 x10^6/uL (3.50-5.40) Hemoglobin 11.7 g/dL (12.0-15.5) Hematocrit 36.3 % (36.0-47.0) Mean Corpuscular Volume 80 fL (79-100) Mean Corpuscular Hemoglobin 26 pg (25-35) Mean Corpuscular Hemoglobin Concent 32 g/dL (31-37) Red Cell Distribution Width 17.4 % (11.5-14.5) Platelet Count 406 x10^3/uL (140-400) Prothrombin Time 25.5 SEC (11.7-14.0) Prothromb Time International Ratio 2.3 (0.8-1.1) Sodium Level 139 mmol/L (136-145) Potassium Level 3.9 mmol/L (3.5-5.1) Chloride Level 101 mmol/L (98-107) Carbon Dioxide Level 34 mmol/L (21-32) Anion Gap 4 (6-14) Blood Urea Nitrogen 13 mg/dL (7-20) Creatinine 1.0 mg/dL (0.6-1.0) Estimated GFR (Cockcroft-Gault) 53.6 Glucose Level 133 mg/dL (70-99) Calcium Level 7.4 mg/dL (8.5-10.1) Iron Level 27 ug/dL (50-170) Total Iron Binding Capacity 272 ug/dL (250-450) Iron Saturation 10 % (15-34) Vitamin B12 Level 228 pg/mL (247-911) Test 05/14/20 07:40 Glucose (Fingerstick) 115 mg/dL (70-99) Problem List Problems Medical Problems: (1) Intractable abdominal pain Status: Acute (2) Partial small bowel obstruction Status: Acute (3) Subtherapeutic anticoagulation Status: Acute Assessment/Plan SBO vs ileus/enteritis await xray, may need to consider SBFT Justicifation of Admission Dx: Justifications for Admission: Justification of Admission Dx: Yes Comments: sbo vs ileus MARILU ALBRIGHT MD 05/14/20 2017: SURGICAL PROGRESS NOTE Assessment/Plan Pt seen and examined. Agree with Ms. Quinonez's note Pt without new c/o abd soft, obese, KUB still with some distention will check KUB in AM, if not improved will proceed with SBFT. PAMELA QUINONEZ TEAM LEADER/RESEARCH PSYCHOLOGIST May 14, 2020 09:20 MARILU ALBRIGHT MD May 14, 2020 20:17
--- NOTE | 2020-05-14 09:24 | NUR ---
SW following. Discussed with RN, pt from home, room air, clear liquid diet - advance as tolerated. Pt gets around fine per RN. Consider SBFT if no improvement per surgery. SW will continue to follow.
--- NOTE | 2020-05-14 09:38 | PDOC ---
Date of Service: DATE: 05/14/20 TIME: 09:35 Subjective: Subjective: Vomited yesterday - "clear" - "I thought I'd never stop." Gas, no stool. Pain is stable. Has tray of clears - says hasn't had anything except a sip of water since admission. Objective: Vital Signs: Vital Signs Date Time Temp Pulse Resp B/P (MAP) Pulse Ox O2 Delivery O2 Flow Rate FiO2 05/14/20 07:00 98.7 77 16 129/54 (79) 94 Room Air 98.7 05/13/20 22:07 91.0 Labs: Laboratory Tests Test 05/13/20 13:25 05/13/20 16:58 05/13/20 23:34 05/14/20 03:48 Glucose (Fingerstick) 173 mg/dL 171 mg/dL 160 mg/dL White Blood Count 11.6 x10^3/uL Red Blood Count 4.56 x10^6/uL Hemoglobin 11.7 g/dL Hematocrit 36.3 % Mean Corpuscular Volume 80 fL Mean Corpuscular Hemoglobin 26 pg Mean Corpuscular Hemoglobin Concent 32 g/dL Red Cell Distribution Width 17.4 % Platelet Count 406 x10^3/uL Prothrombin Time 25.5 SEC Prothromb Time International Ratio 2.3 Sodium Level 139 mmol/L Potassium Level 3.9 mmol/L Chloride Level 101 mmol/L Carbon Dioxide Level 34 mmol/L Anion Gap 4 Blood Urea Nitrogen 13 mg/dL Creatinine 1.0 mg/dL Estimated GFR (Cockcroft-Gault) 53.6 Glucose Level 133 mg/dL Calcium Level 7.4 mg/dL Iron Level 27 ug/dL Total Iron Binding Capacity 272 ug/dL Iron Saturation 10 % Vitamin B12 Level 228 pg/mL Test 05/14/20 07:40 Glucose (Fingerstick) 115 mg/dL Imaging: Abd X-Ray 05/14 pending KUB 05/13 IMPRESSION: Persistent gaseous distention of small bowel loops in a pattern compatible with small bowel obstruction. PE: GEN: NAD LUNGS: CTAB HEART: RRR ABD: large/obese, few if any BS NEURO/PSYCH: A & O 3 A/P: SBO vs enteritis H/o GERD, chronic pain, AVR -- Await today's x-ray, follow surgery recs - consider SBFT. Start B12, add PO iron later as able. Continue PPI. ?should be NPO Justicifation of Admission Dx: Justifications for Admission: Justification of Admission Dx: Yes SEBAS VILLFAUERTE May 14, 2020 09:38
--- NOTE | 2020-05-14 10:19 | RAD ---
XR ABDOMEN 2V History: Reason: SBO / Spl. Instructions: / History: Technique: Upright and supine views of the abdomen. Comparison: May 13, [address] May 12, 2020 Findings: Several dilated air-filled loops of small bowel within the mid and left upper abdomen, decreased with in the right upper and left lower quadrants. Imaged bases are unremarkable. Air and stool scattered t hroughout the imaged colon. Multilevel lumbar spondylosis. Chronic T12 compression fracture status po st kyphoplasty, unchanged. Impression: 1. Several mildly dilated air-filled loops of small bowel, overall decreased small bowel gas compare d to prior. Electronically signed by: Sujit Frazier DO (05/14/2020 10:16 AM) [id number]
[2020-05-14] MEDS: PANTOPRAZOLE IV PUSH 40 MG VIAL. IVP SCH (10:43)
[2020-05-14] MEDS: METOPROLOL TART IMMED RELEASE 25 MG TABLET. PO SCH ×2 (10:44→21:28)
[2020-05-14] MEDS: ONDANSETRON PF 4 MG/2 ML VIAL. IVP PRN (10:44)
[2020-05-14] MEDS: ASPIRIN CHEWABLE 81 MG TABLET. PO SCH (10:44)
[2020-05-14] MEDS: CITALOPRAM 20 MG TABLET. PO SCH (10:44)
[2020-05-14] MEDS: CYANOCOBALAMIN (VITAMIN B-12) 1,000 MCG/ML VIAL IM SCH (10:45)
[2020-05-14 11:00] VITALS: BP 128/56
--- NOTE | 2020-05-14 12:00 | PDOC ---
[facility] [facility] PROGRESS NOTE Date of Service DOS: DATE: 05/14/20 TIME: 11:59 Chief Complaint Chief Complaint acute abdominal pain nausea and vomiting, partial SBO, NPO today obese, BMI 49 dental caries CHF, cad, dm2 History of Present Illness History of Present Illness large amount of vomitus last night, large vomit, and no po intake since, abd pain stable, was better after vomiting, we may need to place NG tube if abd pain worsens Vitals/I&O Vitals/I&O: Vital Signs Date Time Temp Pulse Resp B/P (MAP) Pulse Ox O2 Delivery O2 Flow Rate FiO2 05/14/20 11:00 98.4 76 18 128/56 (80) 96 Room Air 98.4 05/13/20 22:07 91.0 I & O 05/13/20 05/13/20 05/14/20 15:00 23:00 07:00 Intake Total 0 ml 0 ml Balance 0 ml 0 ml Physical Exam General: Alert, Oriented X3, Cooperative Abdomen: Soft, Other (ND) Extremities: No clubbing, No cyanosis Skin: No rashes, No breakdown Labs Labs: Laboratory Tests Test 05/13/20 13:25 05/13/20 16:58 05/13/20 23:34 05/14/20 03:48 Glucose (Fingerstick) 173 mg/dL (70-99) 171 mg/dL (70-99) 160 mg/dL (70-99) White Blood Count 11.6 x10^3/uL (4.0-11.0) Red Blood Count 4.56 x10^6/uL (3.50-5.40) Hemoglobin 11.7 g/dL (12.0-15.5) Hematocrit 36.3 % (36.0-47.0) Mean Corpuscular Volume 80 fL (79-100) Mean Corpuscular Hemoglobin 26 pg (25-35) Mean Corpuscular Hemoglobin Concent 32 g/dL (31-37) Red Cell Distribution Width 17.4 % (11.5-14.5) Platelet Count 406 x10^3/uL (140-400) Prothrombin Time 25.5 SEC (11.7-14.0) Prothromb Time International Ratio 2.3 (0.8-1.1) Sodium Level 139 mmol/L (136-145) Potassium Level 3.9 mmol/L (3.5-5.1) Chloride Level 101 mmol/L (98-107) Carbon Dioxide Level 34 mmol/L (21-32) Anion Gap 4 (6-14) Blood Urea Nitrogen 13 mg/dL (7-20) Creatinine 1.0 mg/dL (0.6-1.0) Estimated GFR (Cockcroft-Gault) 53.6 Glucose Level 133 mg/dL (70-99) Calcium Level 7.4 mg/dL (8.5-10.1) Iron Level 27 ug/dL (50-170) Total Iron Binding Capacity 272 ug/dL (250-450) Iron Saturation 10 % (15-34) Vitamin B12 Level 228 pg/mL (247-911) Test 05/14/20 07:40 Glucose (Fingerstick) 115 mg/dL (70-99) Assessment and Plan Assessmemt and Plan Problems Medical Problems: (1) Intractable abdominal pain Status: Acute (2) Partial small bowel obstruction Status: Acute (3) Subtherapeutic anticoagulation Status: Acute Comment Review of Relevant I have reviewed the following items jcarlos (where applicable) has been applied. Medications: Current Medications Medications (Trade) Dose Ordered Sig/David Route PRN Reason Start Time Stop Time Status Last Admin Dose Admin Warfarin Sodium (Coumadin Per Pharmacy) 1 each PRN DAILY PRN MC SEE COMMENTS 05/13/20 15:00 05/13/20 16:11 Aspirin (Aspirin Chewable) 81 mg DAILY PO 05/14/20 09:00 05/14/20 10:44 Atorvastatin Calcium (Lipitor) 40 mg QHS PO 05/13/20 21:00 05/13/20 21:07 Citalopram Hydrobromide (CeleXA) 20 mg DAILY PO 05/14/20 09:00 05/14/20 10:44 Acetaminophen/ Hydrocodone Bitart (Lortab 5/325) 1 tab PRN Q6HRS PRN PO PAIN 05/13/20 15:00 05/14/20 03:06 Metoprolol Tartrate (Lopressor) 25 mg BID PO 05/13/20 21:00 05/14/20 10:44 Warfarin Sodium (Coumadin) 7.5 mg 1X WARF ONCE PO 05/13/20 16:00 05/13/20 16:03 DC 05/13/20 16:08 Ondansetron HCl (Zofran) 4 mg PRN Q4HRS PRN IVP NAUSEA/VOMITING 1ST CHOICE 05/13/20 23:15 05/14/20 10:44 Cyanocobalamin (Vitamin B-12) 1,000 mcg DAILY IM 05/14/20 09:45 05/14/20 10:45 Justifications for Admission Other Justification LUPILLO CEE MD May 14, 2020 12:00
--- NOTE | 2020-05-14 14:18 | NUR ---
Pharmacy Warfarin Dosing Note S:Pharmacy consulted to assist with anticoagulation therapy started with target INR: 2 -3 O:MAYNOR SCHMIDT is a 80 year old F with Mechanical Aortic Valve AVR LABS: Last INR: 2.3 Last HGB: 11.7 Last HCT: 36.3 Last PLT: 406 Last dose of 7.5 mg given on 05/13/20 at 1608 Previous Regimen: Vitamin K given: N Drug Interaction Changes: Ongoing Drug Interactions: A:INR of 2.3 is within desired range. Target range for this patient is: 2 -3 P: Warfarin dose: 7.5 mg Today at 1600 Bridge Therapy: Next INR due IN AM Pharmacy anticoagulation service will continue to follow. JAY DIAZ [facility], 05/14/20 [id number]
[2020-05-14 15:00] VITALS: BP 140/75
[2020-05-14] MEDS ORDERED: WARFARIN 7.5 MG TABLET. PO ONE (16:00)
[2020-05-14 19:20] VITALS: BP 125/62
[2020-05-14] MEDS: ATORVASTATIN CALCIUM 40 MG TABLET. PO SCH (21:28)
[2020-05-14 23:33] VITALS: BP 92/42
--- NOTE | 2020-05-15 02:45 | NUR ---
Pt. placed on 2L NC for the night.
[2020-05-15 03:26] VITALS: BP 111/60
[2020-05-15 07:00] VITALS: BP 125/48
[2020-05-15] MEDS ORDERED: PANTOPRAZOLE 40 MG TABLET.DR. PO SCH (07:30)
[2020-05-15] MEDS: INSULIN LISPRO 300 UNITS/3 ML VIAL. SQ SCH ×3 (08:00→17:00)
--- NOTE | 2020-05-15 08:09 | RAD ---
XR ABDOMEN 2V History: Reason: SBO / Spl. Instructions: / History: Technique: Upright and supine views of the abdomen. Comparison: May 14, 2020 Findings: Imaged lung bases are unremarkable. No pneumoperitoneum. Increased multiple mildly dilated air-filled loops of small bowel within the right mid abdomen. Air and stool scattered throughout the imaged col on. Advanced multilevel lumbar spondylosis. Lower thoracic chronic compression fracture status post v ertebroplasty, unchanged. Impression: 1. Increased mildly dilated air-filled loops of small bowel within the right mid abdomen. Electronically signed by: Sujit Frazier DO (05/15/2020 8:06 AM) [id number]
[2020-05-15] MEDS ORDERED: BARIUM SULFATE 60% 355 ML SUSP PO ONE (09:15)
[2020-05-15] MEDS ORDERED: CONTRAST GIVEN. MC PRN (10:00)
[2020-05-15] MEDS ORDERED: IOHEXOL 300 MG/ML 100ML VIAL. PO ONE (10:00)
--- NOTE | 2020-05-15 10:42 | PDOC ---
Date of Service: DATE: 05/15/20 TIME: 10:38 Subjective: Subjective: No has NG and orders for SBS. Pt reports lots of stool last night - nurse unaware of this. Objective: Vital Signs: Vital Signs Date Time Temp Pulse Resp B/P (MAP) Pulse Ox O2 Delivery O2 Flow Rate FiO2 05/15/20 07:00 97.4 57 18 125/48 (73) 100 Room Air 97.4 05/15/20 03:26 2.0 Labs: Laboratory Tests Test 05/14/20 12:29 05/14/20 16:42 05/15/20 03:20 05/15/20 07:38 Glucose (Fingerstick) 131 mg/dL 117 mg/dL 89 mg/dL Prothrombin Time 26.0 SEC Prothromb Time International Ratio 2.4 Imaging: Abd X-ray 05/15 Impression: 1. Increased mildly dilated air-filled loops of small bowel within the right mid abdomen. PE: GEN: NAD - was asleep LUNGS: CTAB HEART: RRR ABD: few if any BS, large/distended, has NGT NEURO/PSYCH: A & O 3, drowsy A/P: SBO vs enteritis H/o GERD, chronic pain, AVR EDWIN/B12 deficiency -- Plans as above, await SBS, follow surgery recs. ?PPN Justicifation of Admission Dx: Justifications for Admission: Justification of Admission Dx: Yes SEBAS VILLAFUERTE May 15, 2020 10:42
--- NOTE | 2020-05-15 11:21 | NUR ---
Pharmacy Warfarin Dosing Note S: Pharmacy consulted to assist with anticoagulation therapy started O: MAYNOR SCHMIDT is a 80 year old F with Mechanical Aortic Valve, AVR Last INR: 2.4 Last dose of 7.5 mg given on 05/14/20 at 1535 Ongoing Drug Interactions: CELEXA A:INR of 2.4 is within desired range. Target range for this patient is: 2 -3 P: Warfarin dose: 7.5 mg Daily Bridge Therapy: None Next INR due 05/17/20 AM Pharmacy anticoagulation service will continue to follow. NOMAN CALDWELL RPH, 05/15/20 1121
--- NOTE | 2020-05-15 12:05 | PDOC ---
[employer] PROGRESS NOTE Date of Service DOS: DATE: 05/15/20 TIME: 12:05 Chief Complaint Chief Complaint acute abdominal pain due to partial small bowel obstruction nausea and vomiting, partial SBO, NPO today obese, BMI 49, with current acute mild malnutrition, dental caries CHF, cad, dm2 History of Present Illness History of Present Illness no vomitus last night, abd pain stable, was better after vomiting, we may need to place NG tube if abd pain worsens Vitals/I&O Vitals/I&O: Vital Signs Date Time Temp Pulse Resp B/P (MAP) Pulse Ox O2 Delivery O2 Flow Rate FiO2 05/15/20 08:00 Room Air 05/15/20 07:00 97.4 57 18 125/48 (73) 100 97.4 05/15/20 03:26 2.0 I & O 05/14/20 05/14/20 05/15/20 15:00 23:00 07:00 Intake Total 360 ml Balance 360 ml Physical Exam General: Alert, Oriented X3, Cooperative Abdomen: Soft, Other (ND) Extremities: No clubbing, No cyanosis Skin: No rashes, No breakdown Labs Labs: Laboratory Tests Test 05/14/20 12:29 05/14/20 16:42 05/15/20 03:20 05/15/20 07:38 Glucose (Fingerstick) 131 mg/dL (70-99) 117 mg/dL (70-99) 89 mg/dL (70-99) Prothrombin Time 26.0 SEC (11.7-14.0) Prothromb Time International Ratio 2.4 (0.8-1.1) Assessment and Plan Assessmemt and Plan Problems Medical Problems: (1) Intractable abdominal pain Status: Acute (2) Partial small bowel obstruction Status: Acute (3) Subtherapeutic anticoagulation Status: Acute Comment Review of Relevant I have reviewed the following items jcarlos (where applicable) has been applied. Medications: Current Medications Medications (Trade) Dose Ordered Sig/David Route PRN Reason Start Time Stop Time Status Last Admin Dose Admin Warfarin Sodium (Coumadin) 7.5 mg 1X WARF ONCE PO 05/14/20 16:00 05/14/20 16:01 DC 05/14/20 15:34 Iohexol (Omnipaque 300 Mg/ml) 400 ml 1X ONCE PO 4/2/21 10:00 05/15/20 10:01 DC 05/15/20 10:00 Justifications for Admission Other Justification LUPILLO CEE MD May 15, 2020 12:05
--- NOTE | 2020-05-15 12:54 | PDOC ---
PAMELA QUINONEZ POKER SUPERVISOR 05/15/20 1253: SURGICAL PROGRESS NOTE DATE: 05/15/20 TIME: 12:53 Subjective down for SBFT will FU on results Vital Signs Vital Signs Date Time Temp Pulse Resp B/P (MAP) Pulse Ox O2 Delivery O2 Flow Rate FiO2 05/15/20 08:00 Room Air 05/15/20 07:00 97.4 57 18 125/48 (73) 100 97.4 05/15/20 03:26 2.0 I&O Intake and Output 05/15/20 07:00 Intake Total 360 ml Balance 360 ml Intake Oral 360 ml # Voids 5 # Bowel Movements 3 Labs Laboratory Tests Test 05/13/20 13:25 05/13/20 16:58 05/13/20 23:34 05/14/20 03:48 Glucose (Fingerstick) 173 mg/dL (70-99) 171 mg/dL (70-99) 160 mg/dL (70-99) White Blood Count 11.6 x10^3/uL (4.0-11.0) Red Blood Count 4.56 x10^6/uL (3.50-5.40) Hemoglobin 11.7 g/dL (12.0-15.5) Hematocrit 36.3 % (36.0-47.0) Mean Corpuscular Volume 80 fL (79-100) Mean Corpuscular Hemoglobin 26 pg (25-35) Mean Corpuscular Hemoglobin Concent 32 g/dL (31-37) Red Cell Distribution Width 17.4 % (11.5-14.5) Platelet Count 406 x10^3/uL (140-400) Prothrombin Time 25.5 SEC (11.7-14.0) Prothromb Time International Ratio 2.3 (0.8-1.1) Sodium Level 139 mmol/L (136-145) Potassium Level 3.9 mmol/L (3.5-5.1) Chloride Level 101 mmol/L (98-107) Carbon Dioxide Level 34 mmol/L (21-32) Anion Gap 4 (6-14) Blood Urea Nitrogen 13 mg/dL (7-20) Creatinine 1.0 mg/dL (0.6-1.0) Estimated GFR (Cockcroft-Gault) 53.6 Glucose Level 133 mg/dL (70-99) Calcium Level 7.4 mg/dL (8.5-10.1) Iron Level 27 ug/dL (50-170) Total Iron Binding Capacity 272 ug/dL (250-450) Iron Saturation 10 % (15-34) Vitamin B12 Level 228 pg/mL (247-911) Test 05/14/20 07:40 05/14/20 12:29 05/14/20 16:42 05/15/20 03:20 Glucose (Fingerstick) 115 mg/dL (70-99) 131 mg/dL (70-99) 117 mg/dL (70-99) Prothrombin Time 26.0 SEC (11.7-14.0) Prothromb Time International Ratio 2.4 (0.8-1.1) Test 05/15/20 07:38 Glucose (Fingerstick) 89 mg/dL (70-99) Laboratory Tests Test 05/14/20 16:42 05/15/20 03:20 05/15/20 07:38 Glucose (Fingerstick) 117 mg/dL (70-99) 89 mg/dL (70-99) Prothrombin Time 26.0 SEC (11.7-14.0) Prothromb Time International Ratio 2.4 (0.8-1.1) Problem List Problems Medical Problems: (1) Intractable abdominal pain Status: Acute (2) Partial small bowel obstruction Status: Acute (3) Subtherapeutic anticoagulation Status: Acute Justicifation of Admission Dx: Justifications for Admission: Justification of Admission Dx: Yes MARILU ALBRIGHT MD 05/15/20 1714: SURGICAL PROGRESS NOTE Assessment/Plan Pt reports not any worse, loose, uncontrolled stool last night SBFT with progression of contrast abd soft, obese, min TTP will clamp NGT and try clears PAMELA QUINONEZ POKER SUPERVISOR May 15, 2020 12:53 MARILU ALBRIGHT MD May 15, 2020 17:14
[2020-05-15] MEDS: POTASSIUM CL 20MEQ D5-0.45NACL 1,000 ML IV SCH ×2 (14:16→22:12)
[2020-05-15] MEDS: PANTOPRAZOLE IV PUSH 40 MG VIAL. IVP SCH (14:17)
[2020-05-15] MEDS: HYDROcodone/APAP 5/325MG 1 TAB TABLET PO PRN ×2 (14:18→23:23)
[2020-05-15 15:00] VITALS: BP 120/60
--- NOTE | 2020-05-15 15:28 | RAD ---
DG SMALL BOWEL FOLLOW THROUGH Indication: Reason: SBO / Spl. Instructions: Comparison: Radiograph May 15, 2020. CT May 12, 2020. Technique: Preliminary block cleaner film of the abdomen was obtained. Approximately 400 mL Omnipaque contras t was in instilled via enteric tube. Multiple images were obtained over time. Findings: Lactation Specialist image: Multiple dilated loops of small bowel throughout the abdomen. Air and stool scattered im aged colon. Enteric tube with tip projecting over the distal gastric body. Normal appearance of the stomach and duodenum. Mildly dilated loops of proximal and mid small bowel. Mild progression of contrast over time. Contrast progressed into distal small bowel approximately 150 minutes. Contrast is seen within the colon at approximately 210 minutes. IMPRESSION: 1. Mildly dilated loops of proximal and mid small bowel with delayed transit to the colon. Findings may represent partial small bowel obstruction. 2. Enteric tube with tip projecting over the distal gastric body. Electronically signed by: Sujit Frazier DO (05/15/2020 3:26 PM) [id number]
[2020-05-15] MEDS: CITALOPRAM 20 MG TABLET. PO SCH (17:41)
[2020-05-15] MEDS: METOPROLOL TART IMMED RELEASE 25 MG TABLET. PO SCH ×2 (17:41→22:12)
[2020-05-15] MEDS: WARFARIN 7.5 MG TABLET. PO SCH (17:41)
[2020-05-15] MEDS: ASPIRIN CHEWABLE 81 MG TABLET. PO SCH (17:42)
[2020-05-15] MEDS: DOCUSATE SODIUM 100 MG CAPSULE. PO SCH ×2 (17:42→21:00)
[2020-05-15 19:00] VITALS: BP 143/65
[2020-05-15] MEDS: CYANOCOBALAMIN (VITAMIN B-12) 1,000 MCG/ML VIAL IM SCH (19:21)
[2020-05-15] MEDS: ATORVASTATIN CALCIUM 40 MG TABLET. PO SCH (22:13)
[2020-05-15 23:00] VITALS: BP 146/45
--- NOTE | 2020-05-15 23:19 | NUR ---
Pt. likes to sit in dirty brief filled with stool because she doesn't want to "be a bother" to staff. RN explained to pt. if she sits in dirty briefs, she will have skin breakdown. Pt. understood at this time. Will continue to monitor.
[2020-05-16 02:58] VITALS: BP 128/55
[2020-05-16 07:00] VITALS: BP 155/51
[2020-05-16] MEDS: POTASSIUM CL 20MEQ D5-0.45NACL 1,000 ML IV SCH ×2 (07:00→10:27)
[2020-05-16] MEDS: INSULIN LISPRO 300 UNITS/3 ML VIAL. SQ SCH ×3 (07:25→17:00)
[2020-05-16] MEDS: PANTOPRAZOLE IV PUSH 40 MG VIAL. IVP SCH (07:40)
[2020-05-16] MEDS: ASPIRIN CHEWABLE 81 MG TABLET. PO SCH (07:40)
[2020-05-16] MEDS: METOPROLOL TART IMMED RELEASE 25 MG TABLET. PO SCH ×2 (07:40→20:18)
[2020-05-16] MEDS: CYANOCOBALAMIN (VITAMIN B-12) 1,000 MCG/ML VIAL IM SCH (07:40)
[2020-05-16] MEDS: CITALOPRAM 20 MG TABLET. PO SCH (07:41)
[2020-05-16] MEDS: DOCUSATE SODIUM 100 MG CAPSULE. PO SCH ×2 (07:41→20:17)
--- NOTE | 2020-05-16 08:40 | PDOC ---
CRISTIANOPAMELA Parisi AREA FIELD MANAGER 05/16/20 0840: SURGICAL PROGRESS NOTE DATE: 05/16/20 TIME: 08:38 Subjective tolerating clears multiple loose stools Vital Signs Vital Signs Date Time Temp Pulse Resp B/P (MAP) Pulse Ox O2 Delivery O2 Flow Rate FiO2 05/16/20 07:40 62 128/55 05/16/20 07:00 96.5 20 98 Nasal Cannula 2.0 96.5 I&O Intake and Output 05/16/20 07:00 Intake Total 0 ml Balance 0 ml Intake Oral 0 ml # Voids 3 # Bowel Movements 1 General: Cooperative, No acute distress Abdomen: Soft, No tenderness Labs Laboratory Tests Test 05/14/20 12:29 05/14/20 16:42 05/15/20 03:20 05/15/20 07:38 Glucose (Fingerstick) 131 mg/dL (70-99) 117 mg/dL (70-99) 89 mg/dL (70-99) Prothrombin Time 26.0 SEC (11.7-14.0) Prothromb Time International Ratio 2.4 (0.8-1.1) Test 05/15/20 17:40 05/15/20 20:33 05/16/20 07:22 Glucose (Fingerstick) 113 mg/dL (70-99) 147 mg/dL (70-99) 124 mg/dL (70-99) Laboratory Tests Test 05/15/20 17:40 05/15/20 20:33 05/16/20 07:22 Glucose (Fingerstick) 113 mg/dL (70-99) 147 mg/dL (70-99) 124 mg/dL (70-99) Problem List Problems Medical Problems: (1) Intractable abdominal pain Status: Acute (2) Partial small bowel obstruction Status: Acute (3) Subtherapeutic anticoagulation Status: Acute Assessment/Plan remove NG, advance diet Justicifation of Admission Dx: Justifications for Admission: Justification of Admission Dx: Yes MARILU ALBRIGHT MD 05/16/20 7407: SURGICAL PROGRESS NOTE Assessment/Plan Pt seen and examined. Agree with Ms. Burnett's note Pt having multiple stools but also having pain cont PO and supportive care. PAMELA BURNETT AREA FIELD MANAGER May 16, 2020 08:40 MARILU ALBRIGHT MD May 16, 2020 13:27
--- NOTE | 2020-05-16 09:43 | PDOC ---
[employer] [facility] PROGRESS NOTE Date of Service DOS: DATE: 05/16/20 TIME: 09:42 Chief Complaint Chief Complaint acute abdominal pain due to partial small bowel obstruction nausea and vomiting, partial SBO, NPO today obese, BMI 49, with current acute mild malnutrition, dental caries CHF, cad, dm2 History of Present Illness History of Present Illness NG Tube placed yesterday for pain and SBO better today, having stools and stools, pain better cole clears with NG clamped, will be able to advance diet if she remains no pain transisiton home soon, start PT and OT eval Vitals/I&O Vitals/I&O: Vital Signs Date Time Temp Pulse Resp B/P (MAP) Pulse Ox O2 Delivery O2 Flow Rate FiO2 05/16/20 07:40 62 128/55 05/16/20 07:00 96.5 20 98 Nasal Cannula 2.0 96.5 I & O 05/15/20 05/15/20 05/16/20 15:00 23:00 07:00 Intake Total 0 ml Balance 0 ml Physical Exam General: Alert, Oriented X3, Cooperative, No acute distress Heart: Regular rate, Normal S2 Lungs: Clear Abdomen: Soft, No tenderness Extremities: No clubbing, No cyanosis Skin: No rashes, No breakdown Labs Labs: Laboratory Tests Test 05/15/20 17:40 05/15/20 20:33 05/16/20 07:22 Glucose (Fingerstick) 113 mg/dL (70-99) 147 mg/dL (70-99) 124 mg/dL (70-99) Assessment and Plan Assessmemt and Plan Problems Medical Problems: (1) Intractable abdominal pain Status: Acute (2) Partial small bowel obstruction Status: Acute (3) Subtherapeutic anticoagulation Status: Acute Comment Review of Relevant I have reviewed the following items jcarlos (where applicable) has been applied. Medications: Current Medications Medications (Trade) Dose Ordered Sig/David Route PRN Reason Start Time Stop Time Status Last Admin Dose Admin Iohexol (Omnipaque 300 Mg/ml) 400 ml 1X ONCE PO 05/15/20 10:00 05/15/20 10:01 DC 05/15/20 10:00 Pantoprazole Sodium (PROTONIX VIAL for IV PUSH) 40 mg DAILYAC IVP 05/15/20 12:00 05/16/20 07:40 Warfarin Sodium (Coumadin) 7.5 mg DAILY16 PO 05/15/20 16:00 05/15/20 17:41 Justifications for Admission Other Justification LUPILLO CEE MD May 16, 2020 09:43
[2020-05-16 11:00] VITALS: BP 141/41
[2020-05-16 15:00] VITALS: BP 151/43
[2020-05-16] MEDS: HYDROcodone/APAP 5/325MG 1 TAB TABLET PO PRN (15:27)
[2020-05-16] MEDS: WARFARIN 7.5 MG TABLET. PO SCH (15:27)
[2020-05-16 19:20] VITALS: BP 143/49
[2020-05-16] MEDS: ATORVASTATIN CALCIUM 40 MG TABLET. PO SCH (20:17)
[2020-05-16 23:21] VITALS: BP 142/42
[2020-05-17] MEDS: POTASSIUM CL 20MEQ D5-0.45NACL 1,000 ML IV SCH ×4 (03:00→21:19)
[2020-05-17 03:07] VITALS: BP 143/46
[2020-05-17] MEDS: PANTOPRAZOLE IV PUSH 40 MG VIAL. IVP SCH (06:01)
[2020-05-17 07:31] VITALS: BP 136/41
[2020-05-17 07:59] LABS: PROTHROMBIN TIME PATIENT 30.6 SEC (11.7-14.0)
[2020-05-17] MEDS: INSULIN LISPRO 300 UNITS/3 ML VIAL. SQ SCH ×3 (08:00→17:00)
--- NOTE | 2020-05-17 08:10 | PDOC ---
[employer] [facility] PROGRESS NOTE Date of Service DOS: DATE: 05/17/20 TIME: 08:04 Chief Complaint Chief Complaint acute abdominal pain due to partial small bowel obstruction nausea and vomiting, partial SBO, NPO today obese, BMI 49, with current acute mild malnutrition, dental caries CHF, cad, dm2 History of Present Illness History of Present Illness 05/16/2020 NG Tube placed yesterday for pain and SBO better today, having stools and stools, pain better ocle clears with NG clamped, will be able to advance diet if she remains no pain transisiton home soon, start PT and OT eval 05/17/2020 Patient continues to have some abdominal pain and liquid stools. Denies any vomiting, currently tolerating full liquid diet. Encourage working with PT/OT; states that at baseline she ambulates with a walker. Continue to ADAT. Vitals/I&O Vitals/I&O: Vital Signs Date Time Temp Pulse Resp B/P (MAP) Pulse Ox O2 Delivery O2 Flow Rate FiO2 05/17/20 07:31 98.2 62 20 136/41 (72) 95 Room Air 98.2 05/16/20 07:00 2.0 I & O 05/16/20 05/16/20 05/17/20 15:00 23:00 07:00 Intake Total 860 ml 280 ml 240 ml Balance 860 ml 280 ml 240 ml Physical Exam General: Alert, Oriented X3, Cooperative, No acute distress Heart: Regular rate, Normal S2 Lungs: Clear Abdomen: Soft, No tenderness Extremities: No clubbing, No cyanosis Skin: No rashes, No breakdown Labs Labs: Laboratory Tests Test 05/16/20 12:10 05/16/20 17:00 05/16/20 20:36 05/17/20 07:58 Glucose (Fingerstick) 131 mg/dL (70-99) 112 mg/dL (70-99) 108 mg/dL (70-99) 132 mg/dL (70-99) Assessment and Plan Assessmemt and Plan Problems Medical Problems: (1) Intractable abdominal pain Status: Acute (2) Partial small bowel obstruction Status: Acute (3) Subtherapeutic anticoagulation Status: Acute Comment Review of Relevant I have reviewed the following items jcarlos (where applicable) has been applied. Justifications for Admission Other Justification ALEKSANDAR PEREZ MD May 17, 2020 08:10
--- NOTE | 2020-05-17 08:46 | NUR ---
Pharmacy Warfarin Dosing Note S:Pharmacy consulted to assist with anticoagulation therapy started with target INR: 2 -3 O:MAYNOR SCHMIDT is a 80 year old F with Mechanical Aortic Valve AVR LABS: Last INR: 2.9 Last HGB: 11.7 Last HCT: 36.3 Last PLT: 406 Last dose of 7.5 mg given on 05/16/20 at 1527 Previous Regimen: 7.5MG DAILY Vitamin K given: N Drug Interaction Changes: Same Interacting Drug Ongoing Drug Interactions: CELEXA A:INR of 2.9 is within desired range. Target range for this patient is: 2 -3 P: Warfarin dose: 5 mg Today at 1600 Bridge Therapy: None Next INR due 05/18/20. Pharmacy anticoagulation service will continue to follow. JIM MICHEL RPH, 05/17/20 0837
--- NOTE | 2020-05-17 08:55 | PDOC ---
PAMELA QUINONEZ [employer] CRAFTS INSTRUCTOR 05/17/20 0855: SURGICAL PROGRESS NOTE DATE: 05/17/20 TIME: 08:53 Subjective still with some pain, although eating and stools Vital Signs Vital Signs Date Time Temp Pulse Resp B/P (MAP) Pulse Ox O2 Delivery O2 Flow Rate FiO2 05/17/20 07:31 98.2 62 20 136/41 (72) 95 Room Air 98.2 05/16/20 07:00 2.0 I&O Intake and Output 05/17/20 07:00 Intake Total 1380 ml Balance 1380 ml Intake Oral 1380 ml # Voids 1 # Bowel Movements 1 General: Cooperative, No acute distress Abdomen: Soft, Other (ND, pain ttp epigastric ) Labs Laboratory Tests Test 05/15/20 17:40 05/15/20 20:33 05/16/20 07:22 05/16/20 12:10 Glucose (Fingerstick) 113 mg/dL (70-99) 147 mg/dL (70-99) 124 mg/dL (70-99) 131 mg/dL (70-99) Test 05/16/20 17:00 05/16/20 20:36 05/17/20 05:50 05/17/20 07:58 Glucose (Fingerstick) 112 mg/dL (70-99) 108 mg/dL (70-99) 132 mg/dL (70-99) Prothrombin Time 30.6 SEC (11.7-14.0) Prothromb Time International Ratio 2.9 (0.8-1.1) Laboratory Tests Test 05/16/20 12:10 05/16/20 17:00 05/16/20 20:36 05/17/20 05:50 Glucose (Fingerstick) 131 mg/dL (70-99) 112 mg/dL (70-99) 108 mg/dL (70-99) Prothrombin Time 30.6 SEC (11.7-14.0) Prothromb Time International Ratio 2.9 (0.8-1.1) Test 05/17/20 07:58 Glucose (Fingerstick) 132 mg/dL (70-99) Problem List Problems Medical Problems: (1) Intractable abdominal pain Status: Acute (2) Partial small bowel obstruction Status: Acute (3) Subtherapeutic anticoagulation Status: Acute Assessment/Plan trial soft diet Justicifation of Admission Dx: Justifications for Admission: Justification of Admission Dx: Yes MARILU ALBRIGHT MD 05/17/202053: SURGICAL PROGRESS NOTE Assessment/Plan Pt seen and examined. Agree with Ms. Quinonez's note Pt feels somewhat better, cole PO abd soft, NTTP cont supportive care and ADAT PAMELA QUINONEZ APRN May 17, 2020 08:55 MARILU ALBRIGHT MD May 17, 2020 20:54
[2020-05-17] MEDS: METOPROLOL TART IMMED RELEASE 25 MG TABLET. PO SCH ×2 (09:12→21:19)
[2020-05-17] MEDS: ASPIRIN CHEWABLE 81 MG TABLET. PO SCH (09:12)
[2020-05-17] MEDS: VITAMIN B12,B9,B6 COMPLEX 1 TABLET. PO SCH (09:12)
[2020-05-17] MEDS: DOCUSATE SODIUM 100 MG CAPSULE. PO SCH ×2 (09:13→17:08)
[2020-05-17] MEDS: HYDROcodone/APAP 5/325MG 1 TAB TABLET PO PRN ×2 (09:13→17:09)
[2020-05-17] MEDS: CITALOPRAM 20 MG TABLET. PO SCH (09:13)
[2020-05-17 10:14] VITALS: BP 154/47
[2020-05-17 14:26] VITALS: BP 142/44
[2020-05-17] MEDS ORDERED: WARFARIN 5 MG TABLET. PO ONE (16:00)
[2020-05-17 19:25] VITALS: BP 182/60
[2020-05-17] MEDS: ATORVASTATIN CALCIUM 40 MG TABLET. PO SCH (21:19)
[2020-05-17 23:14] VITALS: BP 171/68
[2020-05-18] MEDS: HYDROcodone/APAP 5/325MG 1 TAB TABLET PO PRN ×3 (01:19→23:31)
[2020-05-18 03:32] VITALS: BP 173/58
[2020-05-18 05:27] LABS: HEMATOCRIT 34.1 % (36.0-47.0); RED BLOOD COUNT 4.31 x10^6/uL (3.50-5.40); WHITE BLOOD COUNT 7.5 x10^3/uL (4.0-11.0)
[2020-05-18] MEDS: PANTOPRAZOLE IV PUSH 40 MG VIAL. IVP SCH (05:41)
[2020-05-18 05:46] LABS: PROTHROMBIN TIME PATIENT 28.4 SEC (11.7-14.0)
[2020-05-18 05:54] LABS: CALCIUM 7.1 mg/dL (8.5-10.1); CREATININE 0.9 mg/dL (0.6-1.0); GFR 60.6
[2020-05-18 07:00] VITALS: BP 155/58
[2020-05-18] MEDS: INSULIN LISPRO 300 UNITS/3 ML VIAL. SQ SCH ×3 (08:00→17:00)
[2020-05-18] MEDS: VITAMIN B12,B9,B6 COMPLEX 1 TABLET. PO SCH (08:53)
[2020-05-18] MEDS: CITALOPRAM 20 MG TABLET. PO SCH (08:53)
[2020-05-18] MEDS: ASPIRIN CHEWABLE 81 MG TABLET. PO SCH (08:53)
[2020-05-18] MEDS: METOPROLOL TART IMMED RELEASE 25 MG TABLET. PO SCH ×2 (08:54→21:28)
[2020-05-18] MEDS: DOCUSATE SODIUM 100 MG CAPSULE. PO SCH ×2 (08:58→21:00)
--- NOTE | 2020-05-18 10:35 | PDOC ---
Date of Service: DATE: 05/18/20 TIME: 10:32 Subjective: Subjective: Liquid stools - feels like she's done going but then keeps going. Some discomfort/indigestion, not eating much, throat and stomach felt like they were on fire. No vomiting. Again says she takes meclizine for reflux. Also used to take Zantac. Objective: Objective: D/w nurse - not eating much, DC discussed. Vital Signs: Vital Signs Date Time Temp Pulse Resp B/P (MAP) Pulse Ox O2 Delivery O2 Flow Rate FiO2 05/18/20 08:57 Room Air 05/18/20 08:54 70 155/58 05/18/20 07:00 98.3 16 95 98.3 05/17/20 08:00 2.0 Labs: Laboratory Tests Test 05/17/20 11:41 05/17/20 17:12 05/17/20 21:01 05/18/20 04:05 Glucose (Fingerstick) 145 mg/dL 108 mg/dL 126 mg/dL White Blood Count 7.5 x10^3/uL Red Blood Count 4.31 x10^6/uL Hemoglobin 11.0 g/dL Hematocrit 34.1 % Mean Corpuscular Volume 79 fL Mean Corpuscular Hemoglobin 26 pg Mean Corpuscular Hemoglobin Concent 32 g/dL Red Cell Distribution Width 18.0 % Platelet Count 370 x10^3/uL Prothrombin Time 28.4 SEC Prothromb Time International Ratio 2.7 Sodium Level 141 mmol/L Potassium Level 4.0 mmol/L Chloride Level 105 mmol/L Carbon Dioxide Level 30 mmol/L Anion Gap 6 Blood Urea Nitrogen 5 mg/dL Creatinine 0.9 mg/dL Estimated GFR (Cockcroft-Gault) 60.6 Glucose Level 121 mg/dL Calcium Level 7.1 mg/dL Test 05/18/20 07:43 Glucose (Fingerstick) 135 mg/dL Imaging: SBS 4/2 IMPRESSION: 1. Mildly dilated loops of proximal and mid small bowel with delayed transit to the colon. Findings may represent partial small bowel obstruction. 2. Enteric tube with tip projecting over the distal gastric body. PE: GEN: NAD - in recliner, was working w/ therapy LUNGS: CTAB HEART: RRR ABD: large, soft, non-tender, BS+ NEURO/PSYCH: A & O 3 A/P: Partial SBO - resolving H/o GERD, chronic pain S/p AVR on Warfarin EDWIN/B12 deficiency -- Continue diet per surgery. Change to PO PPI - can try BID dosing + Tums. Would continue B12 and add PO iron as outpt when acute issue resolved. Justicifation of Admission Dx: Justifications for Admission: Justification of Admission Dx: Yes SEBAS VILLAFUERTE May 18, 2020 10:35
[2020-05-18 11:00] VITALS: BP 143/59
--- NOTE | 2020-05-18 11:11 | PDOC ---
PAMELA QUINONEZ MAGALIE 05/18/20 1111: SURGICAL PROGRESS NOTE DATE: 05/18/20 TIME: 11:10 Subjective not eating much, reflux and burning in stomach having liquid stools Vital Signs Vital Signs Date Time Temp Pulse Resp B/P (MAP) Pulse Ox O2 Delivery O2 Flow Rate FiO2 05/18/20 09:57 Room Air 05/18/20 08:54 70 155/58 05/18/20 07:00 98.3 16 95 98.3 05/17/20 08:00 2.0 I&O Intake and Output 05/18/20 07:00 Intake Total 1080 ml Balance 1080 ml Intake Oral 1080 ml # Voids 6 # Bowel Movements 4 General: Alert, Cooperative Abdomen: Soft, No tenderness Labs Laboratory Tests Test 05/16/20 12:10 05/16/20 17:00 05/16/20 20:36 05/17/20 05:50 Glucose (Fingerstick) 131 mg/dL (70-99) 112 mg/dL (70-99) 108 mg/dL (70-99) Prothrombin Time 30.6 SEC (11.7-14.0) Prothromb Time International Ratio 2.9 (0.8-1.1) Test 05/17/20 07:58 05/17/20 11:41 05/17/20 17:12 05/17/20 21:01 Glucose (Fingerstick) 132 mg/dL (70-99) 145 mg/dL (70-99) 108 mg/dL (70-99) 126 mg/dL (70-99) Test 05/18/20 04:05 05/18/20 07:43 White Blood Count 7.5 x10^3/uL (4.0-11.0) Red Blood Count 4.31 x10^6/uL (3.50-5.40) Hemoglobin 11.0 g/dL (12.0-15.5) Hematocrit 34.1 % (36.0-47.0) Mean Corpuscular Volume 79 fL (79-100) Mean Corpuscular Hemoglobin 26 pg (25-35) Mean Corpuscular Hemoglobin Concent 32 g/dL (31-37) Red Cell Distribution Width 18.0 % (11.5-14.5) Platelet Count 370 x10^3/uL (140-400) Prothrombin Time 28.4 SEC (11.7-14.0) Prothromb Time International Ratio 2.7 (0.8-1.1) Sodium Level 141 mmol/L (136-145) Potassium Level 4.0 mmol/L (3.5-5.1) Chloride Level 105 mmol/L (98-107) Carbon Dioxide Level 30 mmol/L (21-32) Anion Gap 6 (6-14) Blood Urea Nitrogen 5 mg/dL (7-20) Creatinine 0.9 mg/dL (0.6-1.0) Estimated GFR (Cockcroft-Gault) 60.6 Glucose Level 121 mg/dL (70-99) Calcium Level 7.1 mg/dL (8.5-10.1) Glucose (Fingerstick) 135 mg/dL (70-99) Laboratory Tests Test 05/17/20 11:41 05/17/20 17:12 05/17/20 21:01 05/18/20 04:05 Glucose (Fingerstick) 145 mg/dL (70-99) 108 mg/dL (70-99) 126 mg/dL (70-99) White Blood Count 7.5 x10^3/uL (4.0-11.0) Red Blood Count 4.31 x10^6/uL (3.50-5.40) Hemoglobin 11.0 g/dL (12.0-15.5) Hematocrit 34.1 % (36.0-47.0) Mean Corpuscular Volume 79 fL (79-100) Mean Corpuscular Hemoglobin 26 pg (25-35) Mean Corpuscular Hemoglobin Concent 32 g/dL (31-37) Red Cell Distribution Width 18.0 % (11.5-14.5) Platelet Count 370 x10^3/uL (140-400) Prothrombin Time 28.4 SEC (11.7-14.0) Prothromb Time International Ratio 2.7 (0.8-1.1) Sodium Level 141 mmol/L (136-145) Potassium Level 4.0 mmol/L (3.5-5.1) Chloride Level 105 mmol/L (98-107) Carbon Dioxide Level 30 mmol/L (21-32) Anion Gap 6 (6-14) Blood Urea Nitrogen 5 mg/dL (7-20) Creatinine 0.9 mg/dL (0.6-1.0) Estimated GFR (Cockcroft-Gault) 60.6 Glucose Level 121 mg/dL (70-99) Calcium Level 7.1 mg/dL (8.5-10.1) Test 05/18/20 07:43 Glucose (Fingerstick) 135 mg/dL (70-99) Problem List Problems Medical Problems: (1) Intractable abdominal pain Status: Acute (2) Partial small bowel obstruction Status: Acute (3) Subtherapeutic anticoagulation Status: Acute Assessment/Plan no surgical indications would manage medically, diet at tolerated Justicifation of Admission Dx: Justifications for Admission: Justification of Admission Dx: Yes MARILU ALBRIGHT MD 05/18/201920: SURGICAL PROGRESS NOTE Assessment/Plan Pt seen and examined. Agree with Ms. Hortencia's not Pt with c/o reflux, cole PO, passing stools abd soft, NTTP cont ADAT and medical management PAMELA QUINONEZ APRN May 18, 2020 11:11 MARILU ALBIRGHT MD May 18, 2020 19:21
--- NOTE | 2020-05-18 11:23 | NUR ---
SW following. Discussed with RN, pt from home with , room air, GI soft. PT/OT recommending SNF. SW met with pt (no isolation precautions at the time), pt does not want to go to SNF, wants to go home with home health. Pt does not have a preference of provider, would like to speak with Tish from [facility]. SW notified Antonio Winston RN. RN notified of pt's choice to go home rather than a facility. SW will continue to follow.
[2020-05-18] MEDS: POTASSIUM CL 20MEQ D5-0.45NACL 1,000 ML IV SCH (11:39)
--- NOTE | 2020-05-18 11:59 | PDOC ---
[facility] PROGRESS NOTE Date of Service DOS: DATE: 05/18/20 TIME: 11:57 Chief Complaint Chief Complaint acute abdominal pain due to partial small bowel obstruction nausea and vomiting, partial SBO, NPO today obese, BMI 49, with current acute mild malnutrition, dental caries CHF, cad, dm2 History of Present Illness History of Present Illness 05/18/2020 Patient seen and examined Chart reviewed Discussed with case management Discussed with RN Discussed with pharmacy I went ahead and ordered some Carafate slurry as she is having a lot of reflux at night 05/16/2020 NG Tube placed yesterday for pain and SBO better today, having stools and stools, pain better cole clears with NG clamped, will be able to advance diet if she remains no pain transisiton home soon, start PT and OT eval 05/17/2020 Patient continues to have some abdominal pain and liquid stools. Denies any vomiting, currently tolerating full liquid diet. Encourage working with PT/OT; states that at baseline she ambulates with a walker. Continue to ADAT. Vitals/I&O Vitals/I&O: Vital Signs Date Time Temp Pulse Resp B/P (MAP) Pulse Ox O2 Delivery O2 Flow Rate FiO2 05/18/20 11:00 97.9 68 16 143/59 (87) 95 Room Air 97.9 05/17/20 08:00 2.0 I & O 05/17/20 05/17/20 05/18/20 15:00 23:00 07:00 Intake Total 540 ml 300 ml 240 ml Balance 540 ml 300 ml 240 ml Physical Exam General: Alert, Cooperative Heart: Regular rate, Normal S2 Lungs: Clear Abdomen: Soft, No tenderness Extremities: No clubbing, No cyanosis Skin: No rashes, No breakdown Labs Labs: Laboratory Tests Test 05/17/20 17:12 05/17/20 21:01 05/18/20 04:05 05/18/20 07:43 Glucose (Fingerstick) 108 mg/dL (70-99) 126 mg/dL (70-99) 135 mg/dL (70-99) White Blood Count 7.5 x10^3/uL (4.0-11.0) Red Blood Count 4.31 x10^6/uL (3.50-5.40) Hemoglobin 11.0 g/dL (12.0-15.5) Hematocrit 34.1 % (36.0-47.0) Mean Corpuscular Volume 79 fL (79-100) Mean Corpuscular Hemoglobin 26 pg (25-35) Mean Corpuscular Hemoglobin Concent 32 g/dL (31-37) Red Cell Distribution Width 18.0 % (11.5-14.5) Platelet Count 370 x10^3/uL (140-400) Prothrombin Time 28.4 SEC (11.7-14.0) Prothromb Time International Ratio 2.7 (0.8-1.1) Sodium Level 141 mmol/L (136-145) Potassium Level 4.0 mmol/L (3.5-5.1) Chloride Level 105 mmol/L (98-107) Carbon Dioxide Level 30 mmol/L (21-32) Anion Gap 6 (6-14) Blood Urea Nitrogen 5 mg/dL (7-20) Creatinine 0.9 mg/dL (0.6-1.0) Estimated GFR (Cockcroft-Gault) 60.6 Glucose Level 121 mg/dL (70-99) Calcium Level 7.1 mg/dL (8.5-10.1) Test 05/18/20 11:07 Glucose (Fingerstick) 121 mg/dL (70-99) Assessment and Plan Assessmemt and Plan Problems Medical Problems: (1) Intractable abdominal pain Status: Acute (2) Partial small bowel obstruction Status: Acute (3) Subtherapeutic anticoagulation Status: Acut SBO Overweight Severe GERD Malnutrition CAD Diabetes Plan Supportive care I added in Carafate slurry to help with her reflux Continue as needed Tums Continue proton pump inhibitors Trying to advance diet Home meds DVT prophylaxis Full code Hope to discharge soon Comment Review of Relevant I have reviewed the following items jcarlos (where applicable) has been applied. Medications: Current Medications Medications (Trade) Dose Ordered Sig/David Route PRN Reason Start Time Stop Time Status Last Admin Dose Admin Warfarin Sodium (Coumadin) 5 mg 1X WARF ONCE PO 05/17/20 16:00 05/17/20 16:01 DC 05/17/20 15:34 Justifications for Admission Other Justification GRACIELA MCCARTNEY III DO May 18, 2020 11:59
--- NOTE | 2020-05-18 12:40 | NUR ---
Pharmacy Warfarin Dosing Note S: Pharmacy consulted to assist with anticoagulation therapy O: MAYNOR SCHMIDT is a 80 year old F with Mechanical Aortic Valve LABS: Last INR: 2.7 Last HGB: 11 Last HCT: 34.1 Last PLT: 370 Last dose of 5 mg given on 05/17/20 at 1534 Vitamin K given: N Ongoing Drug Interactions: CELEXA A:INR of 2.7 is within desired range. Target range for this patient is: 2 - 3 P: Warfarin dose: 7.5 mg Today at 1600 Bridge Therapy: None Next INR due 05/19/20 Pharmacy anticoagulation service will continue to follow. SWETA PRINCE [facility], 05/18/20 [id number]
[2020-05-18 15:07] VITALS: BP 145/61
[2020-05-18] MEDS ORDERED: WARFARIN 7.5 MG TABLET. PO ONE (16:00)
[2020-05-18] MEDS: PANTOPRAZOLE 40 MG TABLET.DR. PO SCH (16:50)
[2020-05-18] MEDS: SUCRALFATE 1 GM/10 ML ORAL.SUSP. PO SCH ×2 (16:50→21:26)
[2020-05-18 19:00] VITALS: BP 157/62
[2020-05-18] MEDS: ATORVASTATIN CALCIUM 40 MG TABLET. PO SCH (21:26)
[2020-05-18 23:00] VITALS: BP 155/77
[2020-05-19 03:00] VITALS: BP 146/71
[2020-05-19] MEDS: CALCIUM CARBONATE 500 MG TAB.CHEW PO PRN ×2 (03:00→05:55)
[2020-05-19] MEDS: POTASSIUM CL 20MEQ D5-0.45NACL 1,000 ML IV SCH ×2 (05:00→17:15)
[2020-05-19] MEDS: PANTOPRAZOLE 40 MG TABLET.DR. PO SCH ×2 (05:51→16:22)
[2020-05-19] MEDS: SUCRALFATE 1 GM/10 ML ORAL.SUSP. PO SCH ×3 (05:51→16:30)
[2020-05-19 07:00] VITALS: BP 209/64
[2020-05-19] MEDS: INSULIN LISPRO 300 UNITS/3 ML VIAL. SQ SCH ×3 (08:00→17:00)
[2020-05-19] MEDS: METOPROLOL TART IMMED RELEASE 25 MG TABLET. PO SCH ×2 (08:58→20:23)
[2020-05-19] MEDS: CITALOPRAM 20 MG TABLET. PO SCH (08:58)
[2020-05-19] MEDS: VITAMIN B12,B9,B6 COMPLEX 1 TABLET. PO SCH (08:58)
[2020-05-19] MEDS: ASPIRIN CHEWABLE 81 MG TABLET. PO SCH (08:58)
[2020-05-19] MEDS: DOCUSATE SODIUM 100 MG CAPSULE. PO SCH ×2 (09:00→20:48)
--- NOTE | 2020-05-19 09:05 | PDOC ---
PAMELA QUINONEZ [employer] 05/19/20 0905: SURGICAL PROGRESS NOTE DATE: 05/19/20 TIME: 09:04 Subjective vomiting after carafate --dark emesis pain epigastric with eating having stools Vital Signs Vital Signs Date Time Temp Pulse Resp B/P (MAP) Pulse Ox O2 Delivery O2 Flow Rate FiO2 05/19/20 08:58 72 209/64 05/19/20 08:00 Nasal Cannula 2.0 05/19/20 07:00 97.8 18 97 97.8 I&O Intake and Output 05/19/20 07:00 Intake Total 640 ml Balance 640 ml Intake Oral 640 ml # Voids 5 # Bowel Movements 1 General: Alert, Cooperative Abdomen: Soft, Other (mild epigastric TTP) Labs Laboratory Tests Test 05/17/20 11:41 05/17/20 17:12 05/17/20 21:01 05/18/20 04:05 Glucose (Fingerstick) 145 mg/dL (70-99) 108 mg/dL (70-99) 126 mg/dL (70-99) White Blood Count 7.5 x10^3/uL (4.0-11.0) Red Blood Count 4.31 x10^6/uL (3.50-5.40) Hemoglobin 11.0 g/dL (12.0-15.5) Hematocrit 34.1 % (36.0-47.0) Mean Corpuscular Volume 79 fL (79-100) Mean Corpuscular Hemoglobin 26 pg (25-35) Mean Corpuscular Hemoglobin Concent 32 g/dL (31-37) Red Cell Distribution Width 18.0 % (11.5-14.5) Platelet Count 370 x10^3/uL (140-400) Prothrombin Time 28.4 SEC (11.7-14.0) Prothromb Time International Ratio 2.7 (0.8-1.1) Sodium Level 141 mmol/L (136-145) Potassium Level 4.0 mmol/L (3.5-5.1) Chloride Level 105 mmol/L (98-107) Carbon Dioxide Level 30 mmol/L (21-32) Anion Gap 6 (6-14) Blood Urea Nitrogen 5 mg/dL (7-20) Creatinine 0.9 mg/dL (0.6-1.0) Estimated GFR (Cockcroft-Gault) 60.6 Glucose Level 121 mg/dL (70-99) Calcium Level 7.1 mg/dL (8.5-10.1) Test 05/18/20 07:43 05/18/20 11:07 05/18/20 14:11 05/18/20 16:37 Glucose (Fingerstick) 135 mg/dL (70-99) 121 mg/dL (70-99) 117 mg/dL (70-99) SARS-CoV-2 Antigen (Rapid) Negative (NEGATIVE) Test 05/18/20 20:42 05/19/20 05:45 05/19/20 07:27 Glucose (Fingerstick) 120 mg/dL (70-99) 120 mg/dL (70-99) Prothrombin Time 32.0 SEC (11.7-14.0) Prothromb Time International Ratio 3.1 (0.8-1.1) Laboratory Tests Test 05/18/20 11:07 05/18/20 14:11 05/18/20 16:37 05/18/20 20:42 Glucose (Fingerstick) 121 mg/dL (70-99) 117 mg/dL (70-99) 120 mg/dL (70-99) SARS-CoV-2 Antigen (Rapid) Negative (NEGATIVE) Test 05/19/20 05:45 05/19/20 07:27 Prothrombin Time 32.0 SEC (11.7-14.0) Prothromb Time International Ratio 3.1 (0.8-1.1) Glucose (Fingerstick) 120 mg/dL (70-99) Problem List Problems Medical Problems: (1) Intractable abdominal pain Status: Acute (2) Partial small bowel obstruction Status: Acute (3) Subtherapeutic anticoagulation Status: Acute Assessment/Plan no surgical indications gi following Justicifation of Admission Dx: Justifications for Admission: Justification of Admission Dx: Yes MARILU ALBRIGHT MD 05/19/20 1110: SURGICAL PROGRESS NOTE Assessment/Plan Pt seen and examined. Agree with Ms. Quinonez's note Pt had N/V last night, no c/o today abd soft, obese continue per GI, poor candidate. PAMELA QUINONEZ [employer]PER[employer] May 19, 2020 09:05 MARILU ALBRIGHT MD May 19, 2020 11:10
--- NOTE | 2020-05-19 09:36 | NUR ---
SW following. Discussed with RN, pt from home with . Per RN pt threw up this morning, but is wanting to go home today. Pt accepted with [facility]. Awaiting home health discharge orders. SW will continue to follow.
--- NOTE | 2020-05-19 10:00 | PDOC ---
Date of Service: DATE: 05/19/20 TIME: 09:55 Subjective: Subjective: Vomited brown early this morning, then tolerated breakfast. Stooling. Some epigastric discomfort. At this point her brother called - she told him she really hopes to come home today. Objective: Objective: D/w nurse - pt asking to DC. Vital Signs: Vital Signs Date Time Temp Pulse Resp B/P (MAP) Pulse Ox O2 Delivery O2 Flow Rate FiO2 05/19/20 08:58 72 209/64 05/19/20 08:00 Nasal Cannula 2.0 05/19/20 07:00 97.8 18 97 97.8 Labs: Laboratory Tests Test 05/18/20 11:07 05/18/20 14:11 05/18/20 16:37 05/18/20 20:42 Glucose (Fingerstick) 121 mg/dL 117 mg/dL 120 mg/dL SARS-CoV-2 Antigen (Rapid) Negative Test 05/19/20 05:45 05/19/20 07:27 Prothrombin Time 32.0 SEC Prothromb Time International Ratio 3.1 Glucose (Fingerstick) 120 mg/dL PE: GEN: NAD - was asleep HEENT: poor dentition LUNGS: CTAB anteriorly HEART: RRR ABD: NABS, large/round, does not seem tender during my exam - she was on phone NEURO/PSYCH: A & O 3 A/P: Partial SBO - resolved GERD EDWIN/B12 deficiency Chronic pain S/p AVR on Warfarin -- Okay to DC per GI - our office will contact for follow-up - consider EGD as outpt for h/o GERD and if vomiting recurs, possibly screening colonoscopy (though would need to be able to tolerate prep). Would send on PPI - provided Rx. Okay to continue Carafate as well. Continue B12. Ideally would add PO iron - can sometimes be difficult to tolerate. Justicifation of Admission Dx: Justifications for Admission: Justification of Admission Dx: Yes SEBAS VILLAFUERTE May 19, 2020 10:00
[2020-05-19 11:00] VITALS: BP 175/75
[2020-05-19] MEDS ORDERED: CALCIUM GLUCONATE 1,000 MG in IV NORMAL SALINE 100ML 100 ML IV ONE (11:00)
--- NOTE | 2020-05-19 11:22 | PDOC ---
[facility] [facility] PROGRESS NOTE Date of Service DOS: DATE: 05/19/20 TIME: 11:15 Chief Complaint Chief Complaint 05/19/2020 Patient seen and examined at bedside Chart reviewed Discussed with RN Vomited meds this morning Still NPO History of Present Illness History of Present Illness 05/18/2020 Patient seen and examined Chart reviewed Discussed with case management Discussed with RN Discussed with pharmacy I went ahead and ordered some Carafate slurry as she is having a lot of reflux at night 05/16/2020 NG Tube placed yesterday for pain and SBO better today, having stools and stools, pain better cole clears with NG clamped, will be able to advance diet if she remains no pain transisiton home soon, start PT and OT eval 05/17/2020 Patient continues to have some abdominal pain and liquid stools. Denies any vomiting, currently tolerating full liquid diet. Encourage working with PT/OT; states that at baseline she ambulates with a walker. Continue to ADAT. Vitals/I&O Vitals/I&O: Vital Signs Date Time Temp Pulse Resp B/P (MAP) Pulse Ox O2 Delivery O2 Flow Rate FiO2 05/19/20 08:58 72 209/64 05/19/20 08:00 Nasal Cannula 2.0 05/19/20 07:00 97.8 18 97 97.8 I & O 05/18/20 05/18/20 05/19/20 15:00 23:00 07:00 Intake Total 440 ml 200 ml Balance 440 ml 200 ml Physical Exam General: Alert, Cooperative Heart: Regular rate, Normal S2 Lungs: Clear Abdomen: Soft, Other (mild epigastric TTP) Extremities: No clubbing, No cyanosis Skin: No rashes, No breakdown Labs Labs: Laboratory Tests Test 05/18/20 14:11 05/18/20 16:37 05/18/20 20:42 05/19/20 05:45 SARS-CoV-2 Antigen (Rapid) Negative (NEGATIVE) Glucose (Fingerstick) 117 mg/dL (70-99) 120 mg/dL (70-99) Prothrombin Time 32.0 SEC (11.7-14.0) Prothromb Time International Ratio 3.1 (0.8-1.1) Test 05/19/20 07:27 Glucose (Fingerstick) 120 mg/dL (70-99) Assessment and Plan Assessmemt and Plan Problems Medical Problems: (1) Intractable abdominal pain Status: Acute (2) Partial small bowel obstruction Status: Acute (3) Subtherapeutic anticoagulation Status: Acute SBO Overweight Severe GERD Malnutrition CAD Diabetes Plan Continue to monitor GI status Trend labs Low-dose IV fluids Replace calcium (1 amp in next IV bag) May need surgery if no improvement Continue Carafate Continue as needed Tums Continue proton pump inhibitors Continue advancing diet Home meds DVT prophylaxis Full code Hope to discharge soon Comment Review of Relevant I have reviewed the following items jcarlos (where applicable) has been applied. Medications: Current Medications Medications (Trade) Dose Ordered Sig/David Route PRN Reason Start Time Stop Time Status Last Admin Dose Admin Pantoprazole Sodium (Protonix) 40 mg BIDAC PO 05/18/20 16:30 05/19/20 05:51 Sucralfate (Carafate) 1 gm QIDACHS PO 05/18/20 16:30 05/19/20 10:51 Warfarin Sodium (Coumadin) 7.5 mg 1X WARF ONCE PO 05/18/20 16:00 05/18/20 16:01 DC 05/18/20 16:50 Calcium Gluconate 1000 mg/Sodium Chloride 110 ml @ 220 mls/hr 1X ONCE IV 05/19/20 11:00 05/19/20 11:29 05/19/20 10:54 Justifications for Admission Other Justification GRACIELA MCCARTNEY III DO May 19, 2020 11:22
[2020-05-19] MEDS: ONDANSETRON PF 4 MG/2 ML VIAL. IVP PRN (12:30)
[2020-05-19 15:00] VITALS: BP 140/56
--- NOTE | 2020-05-19 15:59 | NUR ---
Pharmacy Warfarin Dosing Note S: Pharmacy consulted to assist with anticoagulation therapy O: MAYNOR SCHMIDT is a 80 year old F with Mechanical Aortic Valve - AVR LABS: Last INR: 3.1 Last HGB: 11 Last HCT: 34.1 Last PLT: 370 Last dose of 7.5 mg given on 05/17/20 at 1650 Vitamin K given: N Ongoing Drug Interactions: CELEXA A:INR of 3.1 is above desired range. Target range for this patient is: 2 - 3 P: Warfarin dose: Hold Today at 1600 Bridge Therapy: None Next INR due 05/20/20 Pharmacy anticoagulation service will continue to follow. SWETA PRINCE [facility], 05/19/20 2818
[2020-05-19 19:00] VITALS: BP 144/44
[2020-05-19] MEDS: ATORVASTATIN CALCIUM 40 MG TABLET. PO SCH (20:23)
[2020-05-19 23:00] VITALS: BP 174/64
[2020-05-20 03:00] VITALS: BP 131/65
[2020-05-20] MEDS: POTASSIUM CL 20MEQ D5-0.45NACL 1,000 ML IV SCH ×2 (03:47→11:00)
[2020-05-20] MEDS: PANTOPRAZOLE 40 MG TABLET.DR. PO SCH (06:28)
[2020-05-20 07:00] VITALS: BP 140/105
[2020-05-20 07:33] LABS: PROTHROMBIN TIME PATIENT 33.6 SEC (11.7-14.0)
[2020-05-20] MEDS: INSULIN LISPRO 300 UNITS/3 ML VIAL. SQ SCH ×2 (08:00→12:00)
[2020-05-20] MEDS: VITAMIN B12,B9,B6 COMPLEX 1 TABLET. PO SCH (08:20)
[2020-05-20] MEDS: METOPROLOL TART IMMED RELEASE 25 MG TABLET. PO SCH (08:20)
[2020-05-20] MEDS: CITALOPRAM 20 MG TABLET. PO SCH (08:20)
[2020-05-20] MEDS: ASPIRIN CHEWABLE 81 MG TABLET. PO SCH (08:20)
[2020-05-20 08:26] LABS: BASO % 0 % (0-3); EOS # 0.3 x10^3/uL (0.0-0.7); EOS % 3 % (0-3); HEMATOCRIT 33.2 % (36.0-47.0); HEMOGLOBIN 10.5 g/dL (12.0-15.5); LYMPH # 1.2 x10^3/uL (1.0-4.8); LYMPH % 16 % (24-48); MEAN CORPUSCULAR HEMOGLOBIN 26 pg (25-35); MEAN CORPUSCULAR HGB CONC 32 g/dL (31-37); MEAN CORPUSCULAR VOLUME 81 fL (79-100); MONO # 0.6 x10^3/uL (0.0-1.1); MONO % 8 % (0-9); NEUT # 5.6 x10^3/uL (1.8-7.7); NEUT % 73 % (31-73); PLATELET COUNT 345 x10^3/uL (140-400); RED BLOOD COUNT 4.12 x10^6/uL (3.50-5.40); RED CELL DISTRIBUTION WIDTH 17.8 % (11.5-14.5); WHITE BLOOD COUNT 7.7 x10^3/uL (4.0-11.0)
[2020-05-20 08:46] LABS: ALBUMIN 2.4 g/dL (3.4-5.0); ALBUMIN/GLOBULIN RATIO 0.7 (1.0-1.7); CREATININE 0.9 mg/dL (0.6-1.0); GFR 60.6; TOTAL BILIRUBIN 0.5 mg/dL (0.2-1.0); TOTAL PROTEIN 5.9 g/dL (6.4-8.2)
[2020-05-20 08:47] LABS: POTASSIUM 4.4 mmol/L (3.5-5.1)
[2020-05-20] MEDS ORDERED: PANT40TA77 PO (08:49)
[2020-05-20] MEDS: DOCUSATE SODIUM 100 MG CAPSULE. PO SCH (08:51)
--- NOTE | 2020-05-20 08:53 | PDOC ---
[facility] [facility] PROGRESS NOTE Date of Service DOS: DATE: 05/20/20 TIME: 08:45 Chief Complaint Chief Complaint 05/20/2020 Patient seen and examined at bedside, chart reviewed, and discussed with RN. She consumed about half a solid-food breakfast this morning without vomiting. She is feeling better. 05/19/2020 Patient seen and examined at bedside Chart reviewed Discussed with RN Vomited meds this morning Still NPO History of Present Illness History of Present Illness 05/18/2020 Patient seen and examined Chart reviewed Discussed with case management Discussed with RN Discussed with pharmacy I went ahead and ordered some Carafate slurry as she is having a lot of reflux at night 05/16/2020 NG Tube placed yesterday for pain and SBO better today, having stools and stools, pain better cole clears with NG clamped, will be able to advance diet if she remains no pain transisiton home soon, start PT and OT eval 05/17/2020 Patient continues to have some abdominal pain and liquid stools. Denies any vomiting, currently tolerating full liquid diet. Encourage working with PT/OT; states that at baseline she ambulates with a walker. Continue to ADAT. Vitals/I&O Vitals/I&O: Vital Signs Date Time Temp Pulse Resp B/P (MAP) Pulse Ox O2 Delivery O2 Flow Rate FiO2 05/20/20 08:20 68 140/105 05/20/20 07:33 Nasal Cannula 2.0 05/20/20 07:00 98.0 17 92 98.0 I & O 05/19/20 05/19/20 05/20/20 15:00 23:00 07:00 Intake Total 1240 ml Balance 1240 ml Physical Exam General: Alert, Cooperative, No acute distress Heart: Regular rate Lungs: Clear Abdomen: Soft Extremities: No clubbing, No cyanosis Skin: No rashes Labs Labs: Laboratory Tests Test 05/19/20 12:05 05/19/20 16:55 05/19/20 20:28 05/20/20 05:10 Glucose (Fingerstick) 118 mg/dL (70-99) 125 mg/dL (70-99) 130 mg/dL (70-99) Prothrombin Time 33.6 SEC (11.7-14.0) Prothromb Time International Ratio 3.3 (0.8-1.1) Test 05/20/20 07:24 05/20/20 07:55 Glucose (Fingerstick) 103 mg/dL (70-99) White Blood Count 7.7 x10^3/uL (4.0-11.0) Red Blood Count 4.12 x10^6/uL (3.50-5.40) Hemoglobin 10.5 g/dL (12.0-15.5) Hematocrit 33.2 % (36.0-47.0) Mean Corpuscular Volume 81 fL (79-100) Mean Corpuscular Hemoglobin 26 pg (25-35) Mean Corpuscular Hemoglobin Concent 32 g/dL (31-37) Red Cell Distribution Width 17.8 % (11.5-14.5) Platelet Count 345 x10^3/uL (140-400) Neutrophils (%) (Auto) 73 % (31-73) Lymphocytes (%) (Auto) 16 % (24-48) Monocytes (%) (Auto) 8 % (0-9) Eosinophils (%) (Auto) 3 % (0-3) Basophils (%) (Auto) 0 % (0-3) Neutrophils # (Auto) 5.6 x10^3/uL (1.8-7.7) Lymphocytes # (Auto) 1.2 x10^3/uL (1.0-4.8) Monocytes # (Auto) 0.6 x10^3/uL (0.0-1.1) Eosinophils # (Auto) 0.3 x10^3/uL (0.0-0.7) Basophils # (Auto) 0.0 x10^3/uL (0.0-0.2) Assessment and Plan Assessmemt and Plan Problems Medical Problems: (1) Intractable abdominal pain Status: Acute (2) Partial small bowel obstruction Status: Acute (3) Subtherapeutic anticoagulation Status: Acute Assessment: SBO Overweight Severe GERD Malnutrition CAD Diabetes Plan: Await surgery input, hope to discharge today if surgery is not necessary For now, continue: Monitoring GI status Low-dose IV fluids Carafate Tums PRN Proton pump inhibitors Advancing diet Home meds DVT prophylaxis Full code Comment Review of Relevant I have reviewed the following items jcarlos (where applicable) has been applied. Medications: Current Medications Medications (Trade) Dose Ordered Sig/David Route PRN Reason Start Time Stop Time Status Last Admin Dose Admin Calcium Gluconate 1000 mg/Sodium Chloride 110 ml @ 220 mls/hr 1X ONCE IV 05/19/20 11:00 05/19/20 11:29 DC 05/19/20 10:54 Justifications for Admission Other Justification GRACIELA MCCARTNEY III DO May 20, 2020 08:53
--- NOTE | 2020-05-20 09:53 | NUR ---
SW following. Discussed with RN, pt from home with . Discharge orders for home with self care, SW sent message to Dr. Oconnor requesting home health discharge orders. Pt set up with [facility]. [facility] RN notified. [facility] will continue to follow.
--- NOTE | 2020-05-20 10:00 | NUR ---
Pharmacy Warfarin Dosing Note S:Pharmacy consulted to assist with anticoagulation therapy started with target INR: 2 -3 O:MAYNOR SCHMIDT is a 80 year old F with Mechanical Aortic Valve AVR LABS: Last INR: 3.3 Last HGB: 11 Last HCT: 34.1 Last PLT: 370 Last dose of 7.5 mg given on 05/18/20 at 1650 Previous Regimen: 7.5MG DAILY Vitamin K given: N Drug Interaction Changes: Same Interacting Drug Ongoing Drug Interactions: CELEXA A:INR of 3.3 is above desired range. Target range for this patient is: 2 -3 P: Warfarin dose: Hold Today at 1600 Bridge Therapy: None Next INR due IN AM Pharmacy anticoagulation service will continue to follow. [facility], 05/20/20 1000
--- NOTE | 2020-05-20 10:00 | PDOC ---
Date of Service: DATE: 05/20/20 TIME: 09:58 Subjective: Subjective: No vomiting since early yesterday morning, feeling better. Tolerating diet. Stooled yesterday. Wants to go home because her has an eye appointment. Has some reflux - "the usual." Wants help charging her phone. Would consider an outpt EGD in the future but not right away. Objective: Vital Signs: Vital Signs Date Time Temp Pulse Resp B/P (MAP) Pulse Ox O2 Delivery O2 Flow Rate FiO2 05/20/20 08:20 68 140/105 05/20/20 07:33 Nasal Cannula 2.0 05/20/20 07:00 98.0 17 92 98.0 Labs: Laboratory Tests Test 05/19/20 12:05 05/19/20 16:55 05/19/20 20:28 05/20/20 05:10 Glucose (Fingerstick) 118 mg/dL 125 mg/dL 130 mg/dL Prothrombin Time 33.6 SEC Prothromb Time International Ratio 3.3 Test 05/20/20 07:24 05/20/20 07:55 Glucose (Fingerstick) 103 mg/dL White Blood Count 7.7 x10^3/uL Red Blood Count 4.12 x10^6/uL Hemoglobin 10.5 g/dL Hematocrit 33.2 % Mean Corpuscular Volume 81 fL Mean Corpuscular Hemoglobin 26 pg Mean Corpuscular Hemoglobin Concent 32 g/dL Red Cell Distribution Width 17.8 % Platelet Count 345 x10^3/uL Neutrophils (%) (Auto) 73 % Lymphocytes (%) (Auto) 16 % Monocytes (%) (Auto) 8 % Eosinophils (%) (Auto) 3 % Basophils (%) (Auto) 0 % Neutrophils # (Auto) 5.6 x10^3/uL Lymphocytes # (Auto) 1.2 x10^3/uL Monocytes # (Auto) 0.6 x10^3/uL Eosinophils # (Auto) 0.3 x10^3/uL Basophils # (Auto) 0.0 x10^3/uL Sodium Level 143 mmol/L Potassium Level 4.4 mmol/L Chloride Level 106 mmol/L Carbon Dioxide Level 34 mmol/L Anion Gap 3 Blood Urea Nitrogen 5 mg/dL Creatinine 0.9 mg/dL Estimated GFR (Cockcroft-Gault) 60.6 BUN/Creatinine Ratio 6 Glucose Level 101 mg/dL Calcium Level 7.0 mg/dL Total Bilirubin 0.5 mg/dL Aspartate Amino Transf (AST/SGOT) 18 U/L Alanine Aminotransferase (ALT/SGPT) 21 U/L Alkaline Phosphatase 89 U/L Total Protein 5.9 g/dL Albumin 2.4 g/dL Albumin/Globulin Ratio 0.7 PE: GEN: NAD LUNGS: CTAB HEART: RRR ABD: large/obese, soft, non-tender, NABS NEURO/PSYCH: A & O 3 A/P: Partial SBO - resolved GERD EDWIN/B12 deficiency S/p AVR on Warfarin COVID negative -- Dc per GI on PPI, B12, and iron. Pt will consider outpt 'scopes. Justicifation of Admission Dx: Justifications for Admission: Justification of Admission Dx: Yes SEBAS VILLAFUERTE May 20, 2020 10:00
[2020-05-20 10:47] VITALS: BP 142/47
--- NOTE | 2020-05-20 11:39 | SNU/HH DC ---
DISCHARGE WITH HOME HEALTH DISCHARGE INFORMATION: Final Diagnosis: Problems Medical Problems: (1) Intractable abdominal pain Status: Acute (2) Partial small bowel obstruction Status: Acute (3) Subtherapeutic anticoagulation Status: Acute Condition on Discharge: Stable CODE STATUS: Code Status: Full HOME HEALTH: Face to Face: I certify this patient is under my care and that I, or a nurse practitioner or physician's material assistant working with me, had a face to face encounter that meets the physician face to face encounter requirements with this patient on []. Medical Complications: Other (Resolving small bowel obstruction) Fpc For: Assess & Educate Safety RN For Eval/Treatment: Yes Physical Therapy For: Evalulation/Treatment Occupational Therapy For: Evaluation/Treatment Home Health Aide For: Self-care CLEAN UP SUPERVISOR For: Community Resources Pt Meets Homebound Status: Poor coordination w/ amb. POST DISCHARGE ORDERS: Activity Instructions for Disc: Activity as tolerated DIET AFTER DISCHARGE: Cardiac FOLLOW-UP: Follow up with: DR. COPE'S OFFICE WILL CALL TO SCHEDULE SCOPES IF NEEDED Follow Up With: PRIMARY CARE PROVIDER IN 1 WEEK TREATMENT/EQUIPMENT ORDERS: Adaptive Equipment Issued: None CERTIFICATION STATEMENT: Certification Statement: Certification Statement: Based on the above finding, I certify that this patient is confined to the home and needs intermittent group home care, physical therapy and/or speech therapy, or continues to need occupational therapy.~ This patient is under my care, and I have initiated the establishment of the plan of care.~ This patient will be followed by myself or a community physician who will periodically review the plan of care. Home Meds Active Scripts Pantoprazole Sodium (PANTOPRAZOLE SODIUM ) 40 Mg Tablet., 40 MG PO BIDAC for . for 30 Days, #60 TAB.SR Prov:GRACIELA MCCARTNEY III DO 05/20/20 Reported Medications Hydrocodone Bit/Acetaminophen (HYDROCODONE-APAP 5-325 ) 1 Tab Tablet, 1 TAB PO PRN Q6HRS PRN for PAIN, TAB 0 Refills 05/13/20 Warfarin Sodium (WARFARIN SODIUM) 7.5 Mg Tablet, 7.5 MG PO DAILY for proph, TAB 05/13/20 Citalopram Hydrobromide (CITALOPRAM HBR) 20 Mg Tablet, 1 TAB PO DAILY for dep/anx, #30 TAB 5 Refills 05/13/20 Amlodipine Besylate (AMLODIPINE BESYLATE) 5 Mg Tablet, 5 MG PO DAILY for htn, TAB 05/13/20 Docusate Sodium (DOCUSATE SODIUM) 100 Mg Capsule, 1 CAP PO BID for constipation for 7 Days, #14 CAP 0 Refills 05/13/20 Pantoprazole Sodium (PANTOPRAZOLE SODIUM ) 40 Mg Tablet.dr, 40 MG PO DAILYAC for GERD, TAB 05/13/20 Aspirin (ASPIRIN) 81 Mg Tab.chew, 1 TAB PO DAILY for main, #30 TAB 3 Refills 05/13/20 Losartan Potassium (LOSARTAN POTASSIUM ) 25 Mg Tablet, 25 MG PO BID for HYPERTENSION, TAB 05/13/20 Hydrochlorothiazide (Hydrochlorothiazide) 25 Mg Tablet, 25 MG PO DAILY for htn, TAB 05/13/20 Atorvastatin Calcium (ATORVASTATIN CALCIUM) 40 Mg Tablet, 1 TAB PO QHS for hld, #90 TAB 3 Refills 05/13/20 Metoprolol Tartrate (METOPROLOL TARTRATE) 25 Mg Tablet, 1 TAB PO BID for htn, #180 TAB 1 Refill 05/13/20 GRACIELA MCCARTNEY III DO May 20, 2020 11:39
--- NOTE | 2020-05-20 12:20 | DS ---
DATE OF DISCHARGE: 05/20/2020 ADMISSION DIAGNOSES: Small-bowel obstruction, nausea, vomiting, abdominal pain. DISCHARGE DIAGNOSES: Resolving small-bowel obstruction, resolving nausea and vomiting, resolving abdominal pain, history of hypertension, overweight, arthritis, chronic anticoagulation, hyperlipidemia, arrhythmias, depression, anxiety, edema, constipation and gastroesophageal reflux disease. CONSULTS: General Surgery and GI. PROCEDURES: None. HOSPITAL COURSE: The patient is a pleasant 80-year-old female who presented with abdominal pain, was noted to have a small-bowel obstruction. She was admitted with an NG tube. The above consults were obtained. We gave her IV fluids and p.r.n. antiemetics. Over the next couple of days, we were able to get the NG out and over the past 2 more days, now, she is doing better. Yesterday, she had a little bit of vomiting. This morning, when I saw her and examined her, she is doing well. She tolerated most of her breakfast. Heart tones are normal. Lungs are clear. We plan to discharge if okay with consultants. DISPOSITION: Home. ACTIVITY: As tolerated. DIET: Low sodium. MEDICATIONS: Protonix 40 a day, amlodipine 5 a day, aspirin 81 a day, atorvastatin 40 a day, citalopram 20 a day, docusate 100 b.i.d., hydrochlorothiazide 20 a day, p.r.n. hydrocodone tablets 5/325 one q.6 hours p.r.n., losartan 25 a day, metoprolol 25 b.i.d., Protonix 40 a day and Coumadin 7.5 p.o. every day. Total time 36 minutes. GRACIELA MCCARTNEY DO DR: YVES/ankit JOB#: [id number] / [id number]
--- NOTE | 2020-05-20 12:20 | NUR ---
Pt discharged home with HH. Pt belongings were packed by her. IV removed. Pt assisted to wheelchair and was secured in car with .
== END 2020-05-20 12:25 | disposition home health service (06) | DRG 389 ==
LOC: ER 20:52 → 4 NORTH 23:31
PROVIDERS: ADMIT Internal Medicine; ATTEND Internal Medicine
PROC: 0D9670Z Drainage of Stomach with Drainage Device, Via Natural or Artificial Opening (ICD-10-PCS; principal; 2020-05-15)
DX: K56.600 Partial intestinal obstruction, unspecified as to cause (principal); E44.1 Mild protein-calorie malnutrition; Z68.42 Body mass index [BMI] 45.0-49.9, adult; R13.10 Dysphagia, unspecified; M19.90 Unspecified osteoarthritis, unspecified site; K57.30 Diverticulosis of large intestine without perforation or abscess without bleeding; K52.9 Noninfective gastroenteritis and colitis, unspecified; K21.9 Gastro-esophageal reflux disease without esophagitis; K02.9 Dental caries, unspecified; I50.9 Heart failure, unspecified; I25.10 Atherosclerotic heart disease of native coronary artery without angina pectoris; I11.0 Hypertensive heart disease with heart failure; G89.29 Other chronic pain; E78.5 Hyperlipidemia, unspecified; E66.01 Morbid (severe) obesity due to excess calories; E53.8 Deficiency of other specified B group vitamins; D50.9 Iron deficiency anemia, unspecified; E11.9 Type 2 diabetes mellitus without complications; F32.9 Major depressive disorder, single episode, unspecified; F41.9 Anxiety disorder, unspecified; K59.00 Constipation, unspecified; Z20.822 Contact with and (suspected) exposure to COVID-19; Z95.2 Presence of prosthetic heart valve; Z98.51 Tubal ligation status; Z90.710 Acquired absence of both cervix and uterus; Z86.73 Personal history of transient ischemic attack (TIA), and cerebral infarction without residual deficits; Z80.49 Family history of malignant neoplasm of other genital organs; Z79.01 Long term (current) use of anticoagulants; Z98.49 Cataract extraction status, unspecified eye
CPT/HCPCS: 36415; 71045; 74018; 74021; 74177; 74250; 80048; 80053; 82607; 82962; 83540; 83550; 83690; 84484; 85025; 85027; 85610; 85730; 87426; 93005; 96374; 96375; 99291; C9113; J0610; J1815; J2270; J2405; J3420; J3480; J7030; Q9967; U0003; U0005; 97110-GP; 97116-GP; 97530-GP; 97535-GO; G0378

== ENCOUNTER → 2020-06-17 | Day surgery (SDC) | payer MEDICARE ==
[~2020-06-17] MED LIST: AMLO-186 PO; ASPI-630 PO; ATOR40TA59 PO; CITA20TA6 PO; DOCU100C28 PO; HYDR-2761 PO; HYDR25TA10 PO; HYDROmorphone 2 MG/ML VIAL IVP PRN; IV RINGERS,LACTATED 1000ML 1,000 ML IV ONE; IV RINGERS,LACTATED 1000ML 1,000 ML IV SCH; LIDOCAINE 2% PF 5 ML VIAL. ONE; LOSA25TA54 PO; METO25TA4 PO; MORPHINE SULFATE 2 MG/ML VIAL. IVP PRN; PANT40TA77 PO; PROCHLORPERAZINE 10 MG/2 ML VIAL. IVP PRN; PROPOFOL 10 MG/ML (20ML) VIAL. IV ONE; WARF7.5T45 PO; fentaNYL PF VIAL 100 MCG/2 ML VIAL IVP PRN
--- NOTE | 2020-06-17 08:22 | HP ---
ADMIT DATE: 06/17/2020 REASON: Nausea, vomiting and GERD. HISTORY OF PRESENT ILLNESS: A 80-year-old female with past medical history significant for CVA, MA, hypertension, hyperlipidemia, arthritis, depression, anxiety and diabetes mellitus, status post aortic valve replacement, Lovenox bridge, tubal ligation, status post hysterectomy, cataract removal and vertebroplasty. Seen with intermittent nausea and reflux. She has taken pantoprazole 40 mg daily without resolution of her symptoms. No dysphagia or odynophagia was encountered. With continued issues, she requested additional evaluation. PAST MEDICAL HISTORY: CVA, MA, hypertension, hyperlipidemia, osteoarthritis, depression, anxiety, status post AVR, tubal ligation, total hysterectomy, cataract removal, vertebroplasty. ALLERGIES: ERYTHROMYCIN, LISINOPRIL. MEDICATIONS: Include amlodipine, aspirin, atorvastatin, citalopram, docusate, hydrochlorothiazide, losartan, metoprolol, pantoprazole, and warfarin. FAMILY HISTORY: Significant for cervical cancer with her mother. SOCIAL HISTORY: She is a nonsmoker, nondrinker. REVIEW OF SYSTEMS: Per records. PHYSICAL EXAMINATION: GENERAL: Reveals a well-nourished, well-developed female who is alert, cooperative, in no acute distress. VITAL SIGNS: Temperature 97.3, pulse 65, respiratory rate 20. LUNGS: Clear. CARDIOVASCULAR: Reveals an S1, S2 with a III/ systolic ejection murmur heard best over the aortic position, consistent with aortic valve replacement. ABDOMEN: Reveals a soft abdomen, normal bowel sounds without appreciable hepatosplenomegaly. IMPRESSION AND PLAN: Gastroesophageal reflux disease with nausea and vomiting. Etiology includes possible Wallace's gastroparesis, hiatal hernia, gastroparesis malignancy. Would therefore recommend upper endoscopy. Risks and benefits have been discussed with the patient including risk of hemorrhage and perforation and she is willing to proceed. RIVKA DR: Delmar TID: [id number]
[2020-06-17 08:39] VITALS: BP 120/58
--- NOTE | 2020-06-19 14:11 | PATHOLOGY ---
[facility] Accession Number: [id number] . 01 Material submitted: . esophagus - BIOPSY DISTAL ESOPHAGUS. Modifiers: distal . 01 Clinical history: . GERD . 02 Diagnosis: Esophageal biopsies, distal esophagus: - Reflux esophagitis. LBQ 06/19/2020 1036 Local . 02 Comment: Sections of the distal esophageal biopsy reveal several segments of hyperplastic squamous esophageal mucosa and a segment of esophagogastric mucosa showing mild chronic inflammation. The findings are consistent reflux esophagitis. There is no evidence of Wallace's change, dysplasia, or malignancy. (JPM/db; 06/19/2020) . 02 Electronically signed: . Red Arredondo MD, Pathologist NPI- [id number] . 01 Gross description: . The specimen is received in formalin, labeled "Shannan Grant, biopsy distal esophagus". Received are four segments of pale cruz tissue ranging in size from 0.3-0.4 cm in maximum dimensions. The specimen is submitted entirely in cassette A1. ([facility]; 06/18/2020) QA/QAC 06/18/2020 1114 Local . 02 Pathologist provided ICD-10: K21.00 . 02 CPT . 794883 Specimen Comment: A courtesy copy of this report has been sent to [phone], [phone] Specimen Comment: [id number] Specimen Comment: Report sent to / DR ARCHER Performed at: 01 [facility] [address], [place] [id number] MD Devin Orozco MD Phone: [phone] Performed at: 02 [facility] [address], [place] [id number] MD Red Arredondo MD Phone: [phone]
== END | disposition home or self-care (01) ==
LOC: ENDOS 07:12
PROVIDERS: ATTEND Internal Medicine Gastroenterology
DX: R12 Heartburn (principal); R11.2 Nausea with vomiting, unspecified; K29.50 Unspecified chronic gastritis without bleeding; K21.00 Gastro-esophageal reflux disease with esophagitis, without bleeding; K31.89 Other diseases of stomach and duodenum; I10 Essential (primary) hypertension; E78.00 Pure hypercholesterolemia, unspecified; I25.2 Old myocardial infarction; F41.9 Anxiety disorder, unspecified; F32.9 Major depressive disorder, single episode, unspecified; E11.9 Type 2 diabetes mellitus without complications; M19.90 Unspecified osteoarthritis, unspecified site; K21.9 Gastro-esophageal reflux disease without esophagitis; G47.30 Sleep apnea, unspecified; Z90.49 Acquired absence of other specified parts of digestive tract; Z90.710 Acquired absence of both cervix and uterus; Z98.51 Tubal ligation status; Z98.890 Other specified postprocedural states; Z95.2 Presence of prosthetic heart valve; Z87.440 Personal history of urinary (tract) infections; Z79.82 Long term (current) use of aspirin; Z79.01 Long term (current) use of anticoagulants; Z79.899 Other long term (current) drug therapy; Z88.1 Allergy status to other antibiotic agents; Z88.8 Allergy status to other drugs, medicaments and biological substances; Z20.822 Contact with and (suspected) exposure to COVID-19
CPT/HCPCS: 43239; 87426; J2704